=== PATIENT | male | born 1940 | race Caucasian/White ===

== ENCOUNTER → 2017-08-12 | Outpatient (REF) | payer MEDICARE ==
[2017-08-12 18:50] LABS: FOLATE 11.2 NG/ML
[2017-08-12 19:09] LABS: PERCENT SATURATION 27.3 % (19.7-50.0)
== END ==
LOC: M LAB REF 17:22
PROVIDERS: ATTEND Internal Medicine Nephrology
DX: D64.9 Anemia, unspecified (principal)

== ENCOUNTER → 2018-02-04 | Outpatient (REF) | payer MEDICARE ==
[2018-02-04 16:16] LABS: THYROID STIMULATING HORMONE 0.776 uIU/ML (0.358-3.740)
[2018-02-06 15:10] LABS: PSA TOTAL 0.4 ng/mL (0.0-4.0)
== END ==
LOC: M LAB REF 15:36
DX: E78.5 Hyperlipidemia, unspecified (principal); Z12.5 Encounter for screening for malignant neoplasm of prostate
CPT/HCPCS: 84443

== ENCOUNTER → 2018-04-09 | Outpatient (REF) | payer MEDICARE ==
[2018-04-09 16:43] LABS: BASO % 0.7 % (0.0-1.0); EOS # 0.1 10^3/uL (0.0-0.50); HEMATOCRIT 41.9 % (42.0-52.0); HEMOGLOBIN 13.9 g/dl (13.5-17.5); LYMPH # 0.8 10^3/uL (1.5-4.5); LYMPH % 26.1 % (24.0-44.0); MEAN CORPUSCULAR HEMOGLOBIN 32.3 pg (27.0-33.0); MEAN CORPUSCULAR HGB CONC 33.2 g/dl (32.0-36.5); MEAN CORPUSCULAR VOLUME 97.4 fl (80.0-96.0); MONO # 0.2 10^3/uL (0.0-0.8); MONO % 7.2 % (0.0-5.0); NEUTROPHILS # 1.9 10^3/uL (1.8-7.7); PLATELET COUNT, AUTOMATED 361 10^3/uL (150-450); RED CELL DISTRIBUTION WIDTH 12.8 % (11.5-14.5); WHITE BLOOD COUNT 3.1 10^3/uL (4.0-10.0)
[2018-04-09 16:50] LABS: ESTIMATED AVERAGE GLUCOSE 117 MG/DL (60-110); HEMOGLOBIN A1c 5.7 %
[2018-04-09 16:52] LABS: ALBUMIN 3.9 GM/DL (3.2-5.2); ALBUMIN/GLOBULIN RATIO 1.26 (1.00-1.93); ALKALINE PHOSPHATASE 37 U/L (45-117); ALT/SGPT 21 U/L (12-78); ANION GAP 8 MEQ/L (8-16); AST/SGOT 11 U/L (7-37); BILIRUBIN,TOTAL 0.3 MG/DL (0.2-1.0); BLOOD UREA NITROGEN 21 MG/DL (7-18); CALCIUM LEVEL 8.9 MG/DL (8.8-10.2); CARBON DIOXIDE LEVEL 27 MEQ/L (21-32); CHLORIDE LEVEL 107 MEQ/L (98-107); CHOLESTEROL LEVEL 132 MG/DL (<200); CREATININE FOR GFR 1.49 MG/DL (0.70-1.30); GLOMERULAR FILTRATION RATE 48.4 (>42); GLUCOSE, FASTING 111 MG/DL (70-100); HDL CHOLESTEROL 53 MG/DL (>40); LDL CHOLESTEROL 62.6 MG/DL (<100); NON-HDL-C 79 MG/DL; POTASSIUM SERUM 4.8 MEQ/L (3.5-5.1); SODIUM LEVEL 142 MEQ/L (136-145); THYROID STIMULATING HORMONE 0.796 uIU/ML (0.358-3.740); TRIGLYCERIDES LEVEL 82 MG/DL (<150)
[2018-04-09 17:06] LABS: MALB URINE SIEMENS 5.2 MG/L; MAU/CREAT RATIO 3.9 MCG/MG (0.0-30.0)
== END ==
LOC: M LABDRAW1 15:44
DX: E78.5 Hyperlipidemia, unspecified (principal); E11.22 Type 2 diabetes mellitus with diabetic chronic kidney disease; K21.9 Gastro-esophageal reflux disease without esophagitis
CPT/HCPCS: 84443

== ENCOUNTER 2019-02-19 12:41 | Emergency (ER) | payer MEDICARE ==
[~2019-02-19] VITALS: Ht 172.7 cm; Wt 82.7 kg
[2019-02-19] MEDS ORDERED: FENO145T13 PO (12:58)
[2019-02-19] MEDS ORDERED: AMLO5TAB6 PO (12:58)
[2019-02-19] MEDS ORDERED: OMEP40CA2 PO (12:58)
[2019-02-19] MEDS ORDERED: TRAZ10TA PO (12:58)
[2019-02-19] MEDS ORDERED: MONT10TA2 PO (12:58)
[2019-02-19] MEDS ORDERED: ASPI81TA85 PO (12:58)
[2019-02-19] MEDS ORDERED: CITA20TA6 PO (12:58)
[2019-02-19] MEDS ORDERED: VITAD1000T PO (12:58)
[2019-02-19] MEDS ORDERED: ATOR1TAB19 PO (12:58)
[2019-02-19] MEDS ORDERED: NS 500 ML IV ONE (13:30)
--- NOTE | 2019-02-19 13:44 | REP ---
Clinical: Altered mental status. Findings: Age-related atrophy and microvascular ischemic changes are appreciated. The ventricles and sulci are symmetric. Benitez-white differentiation is maintained. There is no evidence for acute intracranial hemorrhage, mass/mass effect, pathology or infarction. No extra-axial fluid collection. Calvarium is intact. Paranasal sinuses and mastoid air cells are clear. Impression: Age related atrophy and microvascular ischemic changes. No acute intracranial hemorrhage, infarction, or mass/mass effect. Electronically Signed by Alonzo Flores MD 02/19/2019 01:36 P
--- NOTE | 2019-02-19 13:50 | REP ---
Clinical: Flank pain. Technique: Axial noncontrast images from the lung bases to the pubic symphysis with coronal and sagittal re-formations. Findings: Liver, spleen, pancreas, bilateral adrenal glands and kidneys are normal for noncontrast evaluation. Mild bilateral perinephric stranding is nonspecific and likely chronic. Cholelithiasis noted without evidence for acute cholecystitis. The enteric system is without obstruction or acute inflammatory process. Pelvis demonstrates normal bladder and age appropriate prostate/seminal vesicles. Fat containing left inguinal hernia is noted. No ascites. No free air. No adenopathy. Abdominal aorta demonstrates atherosclerotic changes without aneurysm. Musculoskeletal structures without focal osseous abnormality. Lung bases are clear. Impression: 1. Mild symmetric perinephric stranding likely chronic and without hydroureteronephrosis or nephroureterolithiasis. 2. Cholelithiasis without evidence for acute cholecystitis. 3. Fat containing left inguinal hernia. 4. No acute abdominopelvic pathology appreciated. Electronically Signed by Alonzo Flores MD 02/19/2019 01:42 P
[2019-02-19 14:15] LABS: BASO % 0.2 % (0.0-1.0); EOS % 0.3 % (0.0-3.0); HEMATOCRIT 40.8 % (42.0-52.0); HEMOGLOBIN 13.4 g/dl (13.5-17.5); LYMPH # 0.6 10^3/uL (1.5-4.5); LYMPH % 7.1 % (24.0-44.0); MEAN CORPUSCULAR HEMOGLOBIN 31.2 pg (27.0-33.0); MEAN CORPUSCULAR HGB CONC 32.8 g/dl (32.0-36.5); MEAN CORPUSCULAR VOLUME 94.9 fl (80.0-96.0); MONO # 0.3 10^3/uL (0.0-0.8); MONO % 3.8 % (0.0-5.0); NEUTROPHILS # 7.8 10^3/uL (1.8-7.7); NEUTROPHILS % 87.7 % (36.0-66.0); PLATELET COUNT, AUTOMATED 379 10^3/uL (150-450); WHITE BLOOD COUNT 8.9 10^3/uL (4.0-10.0)
[2019-02-19 14:43] VITALS: BP 177/82
[2019-02-19 14:44] LABS: ALBUMIN 3.4 GM/DL (3.2-5.2); BILIRUBIN,DIRECT 0.2 MG/DL (0.0-0.2); BILIRUBIN,TOTAL 0.5 MG/DL (0.2-1.0); CALCIUM LEVEL 8.6 MG/DL (8.8-10.2); CREATININE FOR GFR 1.25 MG/DL (0.70-1.30); GLOMERULAR FILTRATION RATE 59.2 (>35); MB/CK RELATIVE INDEX 1.49 (< OR =4); POTASSIUM SERUM 4.7 MEQ/L (3.5-5.1); TOTAL PROTEIN 7.2 GM/DL (6.4-8.2); TROPONIN I 0.02 NG/ML (< 0.10)
[2019-02-19] MEDS ORDERED: ISOVUE-370 76% 100ML VIAL (Q9967) As Ordered ONE (14:50)
--- NOTE | 2019-02-19 15:23 | REP ---
Clinical: Abdominal pain. Technique: Axial contrast enhanced images from the lung bases to the pubic symphysis using 100 ml Isovue 370 intravenous contrast material with coronal and sagittal re-formations. Findings: Liver, spleen, pancreas, bilateral adrenal glands and kidneys are normal. Cholelithiasis is appreciated and very subtle gallbladder wall thickening cannot be excluded along with suspected small stones in the common bile duct raising the possibility of early acute cholecystitis. The enteric system is without obstruction or acute inflammatory process. Pelvis demonstrates normal bladder and age appropriate prostate/seminal vesicles. Fat containing inguinal hernia noted. No ascites. No free air. No adenopathy. Atherosclerotic changes to the aorta and vasculature noted without aneurysm or dissection. Musculoskeletal structures demonstrate degenerative changes. Lung bases are clear. Impression: Cholelithiasis with mild gallbladder wall thickening and suspected stones in the common bile duct raise the possibility of early acute cholecystitis. Electronically Signed by Alonzo Flores MD 02/19/2019 03:15 P
--- NOTE | 2019-02-19 15:27 | REP ---
Clinical: Chest pain and weakness . Comparison: 09/02/2013 . Findings: The mediastinum and cardiac silhouette are stable and within normal limits for portable technique. The lung malone are clear without acute consolidation, effusion, or pneumothorax. Skeletal structures are intact. Impression: No acute cardiopulmonary process appreciated. Electronically Signed by Alonzo Flores MD 02/19/2019 03:18 P
--- NOTE | 2019-02-19 17:09 | REP ---
Clinical: Abdominal pain and abnormal CT findings. Technique: Real time mosher scale ultrasound examination using curved array transducer. Findings: Liver and visualized pancreas are normal in contour, size, echogenicity without focal hepatic or pancreatic lesion identified. Gallbladder demonstrates layering sludge and gravel/stones with mild wall thickening to 3 mm. No pericholecystic fluid or sonographic Tam's sign was elicited. The common bile duct measures 4.1 mm diameter. Right kidney measures 12.9 x 4.9 x 5.1 cm and includes subcentimeter lower pole simple cyst without evidence for hydronephrosis. No ascites. Impression: 1. Cholelithiasis. Suspected choledocholithiasis on CT cannot be confirmed on ultrasound. No sonographic Tam's sign was elicited to suggest acute cholecystitis. Clinical correlation is recommended. Electronically Signed by Alonzo Flores MD 02/19/2019 05:01 P
--- NOTE | 2019-02-19 19:24 | ECGEPIP ---
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
[2019-02-19] MEDS ORDERED: PERC5TAB12 PO (23:52)
--- NOTE | 2019-02-20 09:28 | ED PDOC ---
Post-Departure Follow-Up dr albert ramon and dr post faxed formal report of ct abd/p with and witho ut conttrast, gb us for fu Riya Calderón MD Feb 20, 2019 09:28
== END 2019-02-19 18:04 | disposition home or self-care (01) ==
LOC: M ED 12:41
DX: K80.20 Calculus of gallbladder without cholecystitis without obstruction (principal); M54.9 Dorsalgia, unspecified; R10.9 Unspecified abdominal pain; R53.1 Weakness; R20.2 Paresthesia of skin; E11.22 Type 2 diabetes mellitus with diabetic chronic kidney disease; I12.9 Hypertensive chronic kidney disease with stage 1 through stage 4 chronic kidney disease, or unspecified chronic kidney disease; K27.9 Peptic ulcer, site unspecified, unspecified as acute or chronic, without hemorrhage or perforation; N18.9 Chronic kidney disease, unspecified; Z79.899 Other long term (current) drug therapy; Z79.82 Long term (current) use of aspirin
CPT/HCPCS: 70450; 71045; 74176; 74177; 76705; 80048; 80076; 81001; 82150; 82550; 82553; 83605; 83690; 84484; 85025; 87040; 93005; 93041; 96360; 96361; 99284; Q9967

== ENCOUNTER 2019-02-19 20:43 | Emergency (ER) | payer MEDICARE ==
[~2019-02-19] VITALS: Ht 172.7 cm; Wt 81.8 kg
[~2019-02-19 20:43] MED LIST: AMLO5TAB6 PO; ASPI81TA85 PO; ATOR1TAB19 PO; CITA20TA6 PO; FENO145T13 PO; MONT10TA2 PO; OMEP40CA2 PO; TRAZ10TA PO; VITAD1000T PO
[2019-02-19] MEDS ORDERED: ONDANSETRON 4MG/2ML VIAL (J2405) IV ONE (21:15)
[2019-02-19] MEDS: MORPHINE 4 MG/ML 1ML VIAL/SYRINGE (J2270) IV PRN ×2 (21:17→21:41)
[2019-02-19 21:21] LABS: BASO % 0.4 % (0.0-1.0); EOS # 0.1 10^3/uL (0.0-0.50); EOS % 1.1 % (0.0-3.0); HEMATOCRIT 40.6 % (42.0-52.0); HEMOGLOBIN 13.4 g/dl (13.5-17.5); LYMPH # 1.2 10^3/uL (1.5-4.5); LYMPH % 16.4 % (24.0-44.0); MEAN CORPUSCULAR HEMOGLOBIN 31.2 pg (27.0-33.0); MEAN CORPUSCULAR VOLUME 94.4 fl (80.0-96.0); MONO # 0.4 10^3/uL (0.0-0.8); MONO % 5.3 % (0.0-5.0); NEUTROPHILS # 5.5 10^3/uL (1.8-7.7); NEUTROPHILS % 76.2 % (36.0-66.0); PLATELET COUNT, AUTOMATED 387 10^3/uL (150-450); WHITE BLOOD COUNT 7.2 10^3/uL (4.0-10.0)
[2019-02-19 21:40] LABS: ALBUMIN 3.5 GM/DL (3.2-5.2); BILIRUBIN,DIRECT 0.3 MG/DL (0.0-0.2); BILIRUBIN,TOTAL 0.5 MG/DL (0.2-1.0); CALCIUM LEVEL 8.7 MG/DL (8.8-10.2); CREATININE FOR GFR 1.37 MG/DL (0.70-1.30); GLOMERULAR FILTRATION RATE 53.2 (>35); POTASSIUM SERUM 4.6 MEQ/L (3.5-5.1); TOTAL PROTEIN 7.4 GM/DL (6.4-8.2)
--- NOTE | 2019-02-19 23:37 | REPVR ---
EXAM: US Abdomen Limited, Right Upper Quadrant EXAM DATE/TIME: 02/19/2019 10:02 PM CLINICAL HISTORY: 78 years old, male; Abdominal pain; Epigastric; Additional info: Ruq abd pain, worsening, US earlier today TECHNIQUE: Imaging protocol: Real-time ultrasound of the abdomen with image documentation. Examination was focused on the right upper quadrant. COMPARISON: GALLBLADDER US 02/19/2019 4:37 PM FINDINGS: Liver: Unremarkable. Gallbladder: Cholelithiasis and mild gallbladder distention without gallbladder wall thickening or pericholecystic fluid. Negative sonographic Tam's sign, as per the acct exec. Common bile duct: No stones. No ductal dilatation. Pancreas: Suboptimally visualized. Right kidney: No mass. No definite stones. No hydronephrosis. IMPRESSION: Cholelithiasis without sonographic evidence of acute cholecystitis. Electronically signed by: Alfonso Pineda On 02/19/2019 23:37:07 PM
[2019-02-19] MEDS ORDERED: PERC5TAB12 PO (23:52)
[2019-02-20] VITALS: BP 138/67
[2019-02-20] MEDS ORDERED: OXYCODONE/APAP 5MG/325MG(BULK FOR ED) 1 TABLET PO ONE
--- NOTE | 2019-02-20 06:38 | ECGEPIP ---
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
== END 2019-02-20 00:14 | disposition home or self-care (01) ==
LOC: M ED 20:43
DX: K80.70 Calculus of gallbladder and bile duct without cholecystitis without obstruction (principal); R11.0 Nausea; Z87.442 Personal history of urinary calculi; Z79.899 Other long term (current) drug therapy; Z79.82 Long term (current) use of aspirin
CPT/HCPCS: 76705; 80048; 80076; 83605; 83690; 85025; 93005; 93041; 96374; 96375; 99284; J2270; J2405

== ENCOUNTER → 2021-10-02 | Outpatient (REF) | payer MEDICARE ==
[~2021-10-02] MED LIST changes: +AMLO1TAB24 PO; -AMLO5TAB6 PO; -ASPI81TA85 PO; +ASPI81TA86 PO; +CHOL100029 PO; -FENO145T13 PO; +FENO145T7 PO; -MONT10TA2 PO; +MONT10TA97 PO; -OMEP40CA2 PO; +OMEP40CA4 PO; +PERC5TAB12 PO; -TRAZ10TA PO; +TRAZ1TAB12 PO; -VITAD1000T PO
== END ==
LOC: M WUC 20:45
PROVIDERS: ATTEND Nurse Practitioner Family
DX: R42 Dizziness and giddiness (principal)

== ENCOUNTER 2023-09-27 13:09 | Inpatient (IN) | payer BC, MEDICARE ==
[~2023-09-27] VITALS: Ht 167.6 cm; Wt 79.8 kg
[2023-09-27] MEDS ORDERED: BUSP10TA PO (13:29)
[2023-09-27] MEDS ORDERED: CITA20TA7 PO (13:29)
[2023-09-27] MEDS ORDERED: ROPI0.5T33 PO (13:29)
[2023-09-27] MEDS ORDERED: VITA100093 PO (13:29)
[2023-09-27] MEDS ORDERED: GABA-1171 PO (13:29)
[2023-09-27] MEDS ORDERED: ADVA230A INH (13:29)
[2023-09-27] MEDS ORDERED: MORPHINE 4 MG/ML 1ML VIAL IV ONE ×2 (13:40→14:50)
[2023-09-27 13:54] LABS: BASO % 0.1 % (0.0-1.0); HEMATOCRIT 36.9 % (42.0-52.0); HEMOGLOBIN 12.2 g/dl (13.5-17.5); LYMPH # 0.4 10^3/uL (1.5-5.0); LYMPH % 5.3 % (24.0-44.0); MEAN CORPUSCULAR HEMOGLOBIN 32.4 pg (27.0-33.0); MEAN CORPUSCULAR HGB CONC 33.1 g/dl (32.0-36.5); MEAN CORPUSCULAR VOLUME 97.9 fl (80.0-96.0); MONO # 0.2 10^3/uL (0.0-0.8); MONO % 2.1 % (2.0-8.0); NEUTROPHILS # 7.5 10^3/uL (1.5-8.5); PLATELET COUNT, AUTOMATED 199 10^3/uL (150-450); RED BLOOD COUNT 3.77 10^6/uL (4.30-6.10); WHITE BLOOD COUNT 8.1 10^3/uL (4.0-10.0)
[2023-09-27 14:08] LABS: INR 1.33
[2023-09-27 14:09] LABS: PARTIAL THROMBOPLASTIN TIME 26.2 SECONDS (24.8-34.2)
[2023-09-27 14:34] LABS: CALCIUM LEVEL 8.7 MG/DL (8.3-10.6); CREATININE FOR GFR 1.31 MG/DL (0.70-1.30); GLOMERULAR FILTRATION RATE 55.4 (>35); POTASSIUM SERUM 4.9 MMOL/L (3.5-5.1)
[2023-09-27 14:52] LABS: RSV AMPLIFICATION NEGATIVE (NEGATIVE)
[2023-09-27] MEDS ORDERED: NS 1,000 ML IV SCH (16:00)
[2023-09-27] MEDS ORDERED: DEXTROSE 50% 50ML SYRINGE IV PRN (16:05)
[2023-09-27] MEDS ORDERED: GLUCAGON INJ 1MG VIAL SC PRN (16:05)
[2023-09-27] MEDS ORDERED: NS 1,000 ML IV ONE (16:05)
[2023-09-27] MEDS ORDERED: GLUCOSE 4GM CHEW TABLET PO PRN (16:05)
[2023-09-27] MEDS ORDERED: PERCOCET 5MG/325MG TAB PO PRN (16:10)
[2023-09-27] MEDS ORDERED: ALBUTEROL 90 MCG/ACT 8GM HFA INHALER INH PRN (16:15)
[2023-09-27] MEDS ORDERED: busPIRone 10 MG TAB PO PRN (16:15)
[2023-09-27] MEDS ORDERED: ALBU8.5H INH (16:22)
[2023-09-27] MEDS ORDERED: SERT150C PO (16:22)
[2023-09-27] MEDS ORDERED: HOME MED LIST COMPLETE! XX SCH (16:25)
[2023-09-27 17:19] LABS: HEMATOCRIT 35.5 % (42.0-52.0); HEMOGLOBIN 11.6 g/dl (13.5-17.5)
[2023-09-27] MEDS ORDERED: MORPHINE 2 MG/ML 1ML VIAL IV PRN (18:00)
[2023-09-27] MEDS ORDERED: MORPHINE 4 MG/ML 1ML VIAL IV PRN (18:00)
[2023-09-27] MEDS ORDERED: NS 500 ML IV ONE (18:00)
[2023-09-27] MEDS ORDERED: KETAMINE HCL 200MG/20ML VIAL As Ordered ONE (18:05)
[2023-09-27] MEDS ORDERED: propofoL 200 MG/20 ML VIAL As Ordered ONE ×2 (18:06→19:39)
[2023-09-27] MEDS ORDERED: ceFAZolin 1GM VIAL As Ordered ONE (18:07)
[2023-09-27] MEDS ORDERED: TRANEXAMIC ACID 100 MG/ML 10ML VIAL As Ordered ONE (18:31)
[2023-09-27] MEDS ORDERED: VASOPRESSIN INJ 20UNITS/ML 1ML VIAL As Ordered ONE (18:34)
[2023-09-27] MEDS ORDERED: PHENYLephrine 500MCG 5ML (100MCG/ML) SYRINGE As Ordered ONE (19:39)
[2023-09-27 21:40] VITALS: BP 110/58; TEMP 99.3; O2SAT 99
[2023-09-27] MEDS: traZODone 100 MG TAB PO SCH (22:00)
[2023-09-27] MEDS: INSULIN LISPRO (NovoLOG) PER UNIT SC SCH (22:00)
[2023-09-27 23:00] VITALS: BP 122/61; TEMP 98.9; O2SAT 99
[2023-09-27 23:26] VITALS: BP 122/61; TEMP 98.9; O2SAT 99
[2023-09-28] VITALS (8 sets, daily range): BP systolic 119–132; BP diastolic 58–61; TEMP 97.2–98.4; O2SAT 97
[2023-09-28] MEDS: MONTELUKAST 10 MG TAB PO SCH ×2 (00:46→20:29)
[2023-09-28] MEDS: GABAPENTIN 100 MG CAP PO SCH ×3 (00:46→20:29)
[2023-09-28] MEDS: rOPINIRole 0.25 MG TAB(REQUIP) PO SCH ×2 (00:48→20:29)
[2023-09-28] MEDS: NS 1,000 ML IV SCH ×2 (00:49→09:12)
[2023-09-28] MEDS ORDERED: oxyCODONE 5MG TAB PO ONE (03:45)
[2023-09-28 05:04] LABS: ALBUMIN 2.8 G/DL (3.2-5.2); ALKALINE PHOSPHATASE 39 U/L (46-116); ALT/SGPT < 9 U/L (7.0-40); AST/SGOT 9 U/L (<34); BILIRUBIN,DIRECT 0.2 MG/DL (<0.4); BILIRUBIN,TOTAL 0.5 MG/DL (0.3-1.2); BLOOD UREA NITROGEN 22 MG/DL (9-23); CALCIUM LEVEL 7.7 MG/DL (8.3-10.6); CARBON DIOXIDE LEVEL 22 MMOL/L (20-31); CHLORIDE LEVEL 110 MMOL/L (98-107); GLOMERULAR FILTRATION RATE 51.3 (>35); GLUCOSE, FASTING 154 MG/DL (74-106); MAGNESIUM LEVEL 1.8 MG/DL (1.8-2.4); POTASSIUM SERUM 4.8 MMOL/L (3.5-5.1); SODIUM LEVEL 138 MMOL/L (136-145); TOTAL PROTEIN 5.2 G/DL (5.7-8.2)
[2023-09-28] MEDS: INSULIN LISPRO (NovoLOG) PER UNIT SC SCH ×5 (06:00→20:29)
[2023-09-28] MEDS: ADVAIR HFA 230/21MCG INHALER INH SCH ×2 (07:19→20:39)
[2023-09-28] MEDS: OMEPRAZOLE 20MG CAP PO SCH (09:13)
[2023-09-28] MEDS: LIDOCAINE 5% (LIDODERM) PATCH TD SCH (09:13)
[2023-09-28] MEDS: CitaloPRAM (CeleXA) 20 MG TAB PO SCH (09:14)
[2023-09-28] MEDS: PERCOCET 5MG/325MG TAB PO PRN ×2 (09:14→16:24)
[2023-09-28] MEDS: ATORVASTATIN 10 MG TAB PO SCH (09:14)
[2023-09-28] MEDS: ASPIRIN 81MG ENTERIC TABLET PO SCH (14:06)
[2023-09-28] MEDS: ACETAMINOPHEN TAB 650MG DOSE (2X325MG) PO PRN (14:15)
[2023-09-28] MEDS: traZODone 100 MG TAB PO SCH (20:27)
[2023-09-29] VITALS (8 sets, daily range): BP systolic 106–125; BP diastolic 56–75; TEMP 97.7–99.8; O2SAT 89–98
[2023-09-29] MEDS: PERCOCET 5MG/325MG TAB PO PRN ×3 (04:06→15:00)
[2023-09-29 06:06] LABS: BLOOD UREA NITROGEN 19 MG/DL (9-23); CALCIUM LEVEL 7.7 MG/DL (8.3-10.6); CARBON DIOXIDE LEVEL 23 MMOL/L (20-31); CHLORIDE LEVEL 111 MMOL/L (98-107); GLOMERULAR FILTRATION RATE > 60.0 (>35); GLUCOSE, FASTING 136 MG/DL (74-106); MAGNESIUM LEVEL 1.8 MG/DL (1.8-2.4); POTASSIUM SERUM 4.2 MMOL/L (3.5-5.1); SODIUM LEVEL 140 MMOL/L (136-145)
[2023-09-29] MEDS: ADVAIR HFA 230/21MCG INHALER INH SCH ×2 (07:42→19:32)
[2023-09-29] MEDS: INSULIN LISPRO (NovoLOG) PER UNIT SC SCH ×4 (08:36→21:00)
[2023-09-29] MEDS: CitaloPRAM (CeleXA) 20 MG TAB PO SCH (08:38)
[2023-09-29] MEDS: OMEPRAZOLE 20MG CAP PO SCH (08:39)
[2023-09-29] MEDS: ATORVASTATIN 10 MG TAB PO SCH (08:40)
[2023-09-29] MEDS: GABAPENTIN 100 MG CAP PO SCH ×2 (08:40→21:00)
[2023-09-29] MEDS: LIDOCAINE 5% (LIDODERM) PATCH TD SCH (08:40)
[2023-09-29] MEDS: ASPIRIN 81MG ENTERIC TABLET PO SCH ×2 (08:40→21:01)
[2023-09-29] MEDS: ACETAMINOPHEN TAB 650MG DOSE (2X325MG) PO PRN (12:32)
[2023-09-29] MEDS: traZODone 100 MG TAB PO SCH (21:00)
[2023-09-29] MEDS: MONTELUKAST 10 MG TAB PO SCH (21:00)
[2023-09-29] MEDS: rOPINIRole 0.25 MG TAB(REQUIP) PO SCH (21:01)
[2023-09-30] MEDS: PERCOCET 5MG/325MG TAB PO PRN ×4 (00:42→21:34)
[2023-09-30 00:45] VITALS: BP 157/64; TEMP 100.2; O2SAT 95
[2023-09-30 04:55] VITALS: TEMP 98.7
[2023-09-30 05:42] VITALS: BP 136/68; TEMP 98.5; O2SAT 96
[2023-09-30] MEDS: ADVAIR HFA 230/21MCG INHALER INH SCH ×2 (08:00→19:52)
[2023-09-30] MEDS: OMEPRAZOLE 20MG CAP PO SCH (08:44)
[2023-09-30] MEDS: LIDOCAINE 5% (LIDODERM) PATCH TD SCH (08:45)
[2023-09-30] MEDS: ATORVASTATIN 10 MG TAB PO SCH (08:45)
[2023-09-30] MEDS: INSULIN LISPRO (NovoLOG) PER UNIT SC SCH ×4 (08:45→20:19)
[2023-09-30] MEDS: CitaloPRAM (CeleXA) 20 MG TAB PO SCH (08:45)
[2023-09-30] MEDS: ASPIRIN 81MG ENTERIC TABLET PO SCH ×2 (08:45→20:27)
[2023-09-30] MEDS: GABAPENTIN 100 MG CAP PO SCH ×2 (08:45→20:27)
[2023-09-30] MEDS ORDERED: ENOXAPARIN 40MG/0.4ML SYRINGE (J1650 PER 10MG) SC SCH (09:00)
[2023-09-30 14:00] VITALS: BP 129/68; TEMP 98; O2SAT 94
[2023-09-30] MEDS: ACETAMINOPHEN TAB 650MG DOSE (2X325MG) PO PRN (20:25)
[2023-09-30] MEDS: rOPINIRole 0.25 MG TAB(REQUIP) PO SCH (20:27)
[2023-09-30] MEDS: traZODone 100 MG TAB PO SCH (20:27)
[2023-09-30] MEDS: MONTELUKAST 10 MG TAB PO SCH (20:27)
[2023-09-30 20:46] VITALS: BP 136/72; TEMP 99.8; O2SAT 94
[2023-10-01 02:00] VITALS: TEMP 97.7
[2023-10-01] MEDS: PERCOCET 5MG/325MG TAB PO PRN ×3 (04:02→20:11)
[2023-10-01 05:05] VITALS: BP 119/70; TEMP 97.9; O2SAT 95
[2023-10-01] MEDS ORDERED: LIDOCAINE 5% (LIDODERM) PATCH TD PRN (09:00)
[2023-10-01] MEDS: LIDOCAINE 5% (LIDODERM) PATCH TD SCH (09:06)
[2023-10-01] MEDS: GABAPENTIN 100 MG CAP PO SCH ×2 (09:06→20:09)
[2023-10-01] MEDS: INSULIN LISPRO (NovoLOG) PER UNIT SC SCH ×4 (09:06→20:58)
[2023-10-01] MEDS: OMEPRAZOLE 20MG CAP PO SCH (09:06)
[2023-10-01] MEDS: ASPIRIN 81MG ENTERIC TABLET PO SCH ×2 (09:06→20:10)
[2023-10-01] MEDS: ATORVASTATIN 10 MG TAB PO SCH (09:08)
[2023-10-01] MEDS: CitaloPRAM (CeleXA) 20 MG TAB PO SCH (09:09)
[2023-10-01] MEDS: ADVAIR HFA 230/21MCG INHALER INH SCH ×2 (09:29→21:27)
[2023-10-01] MEDS: SENOKOT S TAB PO SCH ×2 (10:08→20:10)
[2023-10-01 11:16] VITALS: BP_SYST 126; BP_SYST 83; BP_DIAS 57; BP_DIAS 62
[2023-10-01 14:00] VITALS: BP 122/63; TEMP 99.2; O2SAT 94
[2023-10-01] MEDS: rOPINIRole 0.25 MG TAB(REQUIP) PO SCH (20:10)
[2023-10-01] MEDS: traZODone 100 MG TAB PO SCH (20:10)
[2023-10-01] MEDS: MONTELUKAST 10 MG TAB PO SCH (20:10)
[2023-10-01 21:13] VITALS: BP 121/63; TEMP 100.4; O2SAT 92
[2023-10-01] MEDS: ACETAMINOPHEN TAB 650MG DOSE (2X325MG) PO PRN (21:44)
[2023-10-01 22:23] LABS: BASO % 0.4 % (0.0-1.0); EOS % 0.9 % (0.0-3.0); HEMATOCRIT 21.3 % (42.0-52.0); LYMPH # 0.7 10^3/uL (1.5-5.0); LYMPH % 30.5 % (24.0-44.0); MEAN CORPUSCULAR HEMOGLOBIN 32.2 pg (27.0-33.0); MEAN CORPUSCULAR HGB CONC 32.4 g/dl (32.0-36.5); MEAN CORPUSCULAR VOLUME 99.5 fl (80.0-96.0); MONO # 0.2 10^3/uL (0.0-0.8); MONO % 7.6 % (2.0-8.0); NEUTROPHILS # 1.3 10^3/uL (1.5-8.5); NEUTROPHILS % 60.2 % (36.0-66.0); PLATELET COUNT, AUTOMATED 202 10^3/uL (150-450); RED BLOOD COUNT 2.14 10^6/uL (4.30-6.10); WHITE BLOOD COUNT 2.2 10^3/uL (4.0-10.0)
[2023-10-01 22:29] LABS: HEMOGLOBIN 6.9 g/dl (13.5-17.5)
[2023-10-01 22:41] VITALS: TEMP 97.4
[2023-10-02] VITALS (11 sets, daily range): BP systolic 112–142; BP diastolic 52–85; TEMP 96.8–99; O2SAT 92–97
[2023-10-02 06:15] LABS: EOS % 0.9 % (0.0-3.0); HEMATOCRIT 26.1 % (42.0-52.0); HEMOGLOBIN 8.3 g/dl (13.5-17.5); LYMPH # 0.4 10^3/uL (1.5-5.0); LYMPH % 20.2 % (24.0-44.0); MEAN CORPUSCULAR HEMOGLOBIN 30.9 pg (27.0-33.0); MEAN CORPUSCULAR HGB CONC 31.8 g/dl (32.0-36.5); MONO # 0.2 10^3/uL (0.0-0.8); MONO % 9.6 % (2.0-8.0); NEUTROPHILS # 1.5 10^3/uL (1.5-8.5); NEUTROPHILS % 68.8 % (36.0-66.0); PLATELET COUNT, AUTOMATED 227 10^3/uL (150-450); RED BLOOD COUNT 2.69 10^6/uL (4.30-6.10); WHITE BLOOD COUNT 2.2 10^3/uL (4.0-10.0)
[2023-10-02] MEDS: ADVAIR HFA 230/21MCG INHALER INH SCH ×2 (08:02→20:05)
[2023-10-02] MEDS: GABAPENTIN 100 MG CAP PO SCH ×2 (08:27→20:13)
[2023-10-02] MEDS: SENOKOT S TAB PO SCH ×2 (08:27→20:13)
[2023-10-02] MEDS: ATORVASTATIN 10 MG TAB PO SCH (08:27)
[2023-10-02] MEDS: OMEPRAZOLE 20MG CAP PO SCH (08:27)
[2023-10-02] MEDS: LIDOCAINE 5% (LIDODERM) PATCH TD SCH (08:27)
[2023-10-02] MEDS: CitaloPRAM (CeleXA) 20 MG TAB PO SCH (08:27)
[2023-10-02] MEDS: INSULIN LISPRO (NovoLOG) PER UNIT SC SCH ×4 (08:28→20:40)
[2023-10-02] MEDS: ASPIRIN 81MG ENTERIC TABLET PO SCH ×2 (08:28→20:12)
[2023-10-02] MEDS: PERCOCET 5MG/325MG TAB PO PRN ×3 (08:33→22:35)
[2023-10-02] MEDS: ACETAMINOPHEN TAB 650MG DOSE (2X325MG) PO PRN ×2 (11:36→20:13)
[2023-10-02] MEDS: traZODone 100 MG TAB PO SCH (20:12)
[2023-10-02] MEDS: rOPINIRole 0.25 MG TAB(REQUIP) PO SCH (20:12)
[2023-10-02] MEDS: MONTELUKAST 10 MG TAB PO SCH (20:13)
[2023-10-03 05:20] VITALS: BP 142/91; TEMP 98.8; O2SAT 93
[2023-10-03 06:27] LABS: HEMATOCRIT 29.3 % (42.0-52.0); HEMOGLOBIN 9.9 g/dl (13.5-17.5)
[2023-10-03] MEDS: ADVAIR HFA 230/21MCG INHALER INH SCH ×2 (08:04→20:41)
[2023-10-03] MEDS: INSULIN LISPRO (NovoLOG) PER UNIT SC SCH ×4 (08:35→19:31)
[2023-10-03] MEDS: OMEPRAZOLE 20MG CAP PO SCH (08:36)
[2023-10-03] MEDS: GABAPENTIN 100 MG CAP PO SCH ×2 (08:36→19:37)
[2023-10-03] MEDS: SENOKOT S TAB PO SCH ×2 (08:36→19:36)
[2023-10-03] MEDS: PERCOCET 5MG/325MG TAB PO PRN ×3 (08:37→19:38)
[2023-10-03] MEDS: ATORVASTATIN 10 MG TAB PO SCH (08:37)
[2023-10-03] MEDS: LIDOCAINE 5% (LIDODERM) PATCH TD SCH (08:38)
[2023-10-03] MEDS: CitaloPRAM (CeleXA) 20 MG TAB PO SCH (08:38)
[2023-10-03] MEDS: ASPIRIN 81MG ENTERIC TABLET PO SCH ×2 (08:38→19:37)
[2023-10-03] MEDS: SODIUM CHLORIDE NASAL 0.65% SPRAY BTL (OCEAN) PRN ×2 (08:39→19:35)
[2023-10-03] MEDS: ACETAMINOPHEN TAB 650MG DOSE (2X325MG) PO PRN ×2 (11:56→13:25)
[2023-10-03] MEDS: traZODone 100 MG TAB PO SCH (19:36)
[2023-10-03] MEDS: rOPINIRole 0.25 MG TAB(REQUIP) PO SCH (19:36)
[2023-10-03] MEDS: MONTELUKAST 10 MG TAB PO SCH (19:38)
[2023-10-04 05:00] VITALS: BP 135/78; TEMP 99.4; O2SAT 91
[2023-10-04] MEDS: ADVAIR HFA 230/21MCG INHALER INH SCH ×2 (07:39→20:04)
[2023-10-04] MEDS: SENOKOT S TAB PO SCH ×2 (08:46→19:24)
[2023-10-04] MEDS: OMEPRAZOLE 20MG CAP PO SCH (08:47)
[2023-10-04] MEDS: GABAPENTIN 100 MG CAP PO SCH ×2 (08:47→19:25)
[2023-10-04] MEDS: CitaloPRAM (CeleXA) 20 MG TAB PO SCH (08:47)
[2023-10-04] MEDS: ASPIRIN 81MG ENTERIC TABLET PO SCH ×2 (08:47→19:25)
[2023-10-04] MEDS: INSULIN LISPRO (NovoLOG) PER UNIT SC SCH ×4 (08:48→19:25)
[2023-10-04] MEDS: PERCOCET 5MG/325MG TAB PO PRN ×2 (08:48→16:03)
[2023-10-04] MEDS: ATORVASTATIN 10 MG TAB PO SCH (08:48)
[2023-10-04] MEDS: LIDOCAINE 5% (LIDODERM) PATCH TD SCH (08:51)
[2023-10-04] MEDS ORDERED: ASPI81TAEC PO (09:57)
[2023-10-04] MEDS: ACETAMINOPHEN TAB 650MG DOSE (2X325MG) PO PRN (12:45)
[2023-10-04] MEDS: rOPINIRole 0.25 MG TAB(REQUIP) PO SCH (19:23)
[2023-10-04] MEDS: traZODone 100 MG TAB PO SCH (19:25)
[2023-10-04] MEDS: MONTELUKAST 10 MG TAB PO SCH (19:25)
== END 2023-10-04 20:45 | DRG 481 ==
LOC: EDBD 13:09 → M ED 13:09 → M ED INP 16:01 → M PCU 21:36 → M MSPAV 09-30 05:35
PROVIDERS: ADMIT Student in an Organized Health Care Education/Training Program; ATTEND Family Medicine
PROC: 0QS706Z Reposition Left Upper Femur with Intramedullary Internal Fixation Device, Open Approach (ICD-10-PCS; principal; 2023-09-27 16:46)
PROC: 30233N1 Transfusion of Nonautologous Red Blood Cells into Peripheral Vein, Percutaneous Approach (ICD-10-PCS; 2023-10-02)
DX: S72.142A Displaced intertrochanteric fracture of left femur, initial encounter for closed fracture (principal); D62 Acute posthemorrhagic anemia; E11.22 Type 2 diabetes mellitus with diabetic chronic kidney disease; N18.30 Chronic kidney disease, stage 3 unspecified; E78.5 Hyperlipidemia, unspecified; K21.9 Gastro-esophageal reflux disease without esophagitis; J45.909 Unspecified asthma, uncomplicated; M54.50 Low back pain, unspecified; G89.29 Other chronic pain; W18.09XA Striking against other object with subsequent fall, initial encounter; Y92.014 Private driveway to single-family (private) house as the place of occurrence of the external cause; R01.1 Cardiac murmur, unspecified; Y93.H1 Activity, digging, shoveling and raking; Y99.8 Other external cause status; H54.8 Legal blindness, as defined in USA; H35.30 Unspecified macular degeneration; Z87.891 Personal history of nicotine dependence; Z79.84 Long term (current) use of oral hypoglycemic drugs; Z88.8 Allergy status to other drugs, medicaments and biological substances; Z88.2 Allergy status to sulfonamides

== ENCOUNTER 2023-10-04 11:32 | Inpatient (IN) | payer BC, MEDICARE ==
[~2023-10-04] VITALS: Ht 167.6 cm; Wt 79.8 kg
[~2023-10-04 11:32] MED LIST changes: +ADVA230A INH; +ALBU8.5H INH; +ASPI81TAEC PO; +BUSP10TA PO; +CITA20TA7 PO; +GABA-1171 PO; +ROPI0.5T33 PO; +SERT150C PO; +VITA100093 PO
[2023-10-04] MEDS ORDERED: MOM 30ML SUSPENSION UDC PO PRN (17:15)
[2023-10-04] MEDS ORDERED: ONDANSETRON 4MG TAB PO PRN (17:15)
[2023-10-04] MEDS ORDERED: ALBUTEROL 90 MCG/ACT 8GM HFA INHALER INH PRN (17:20)
[2023-10-04] MEDS ORDERED: oxyCODONE 5MG TAB PO PRN (17:25)
[2023-10-04] MEDS ORDERED: SODIUM CHLORIDE NASAL 0.65% SPRAY BTL (OCEAN) PRN (17:25)
[2023-10-04] MEDS ORDERED: DEXTROSE 50% 50ML SYRINGE IV PRN (17:30)
[2023-10-04] MEDS ORDERED: GLUCAGON INJ 1MG VIAL SC PRN (17:30)
[2023-10-04] MEDS: INSULIN LISPRO (NovoLOG) PER UNIT SC SCH ×2 (17:30→21:00)
[2023-10-04] MEDS ORDERED: GLUCOSE 4GM CHEW TABLET PO PRN (17:30)
[2023-10-04 20:42] VITALS: BP 140/65; TEMP 97.5; O2SAT 94
[2023-10-04] MEDS: SENNA 8.6 MG TAB (SENOKOT) PO SCH (21:00)
[2023-10-04] MEDS: oxyCODONE 5MG TAB PO PRN (22:22)
[2023-10-04] MEDS: ACETAMINOPHEN 500 MG TAB PO SCH (22:27)
[2023-10-05 06:00] VITALS: BP 154/78; TEMP 98.2; O2SAT 97
[2023-10-05 07:07] LABS: HEMATOCRIT 29.1 % (42.0-52.0); HEMOGLOBIN 9.5 g/dl (13.5-17.5); MEAN CORPUSCULAR HEMOGLOBIN 31.9 pg (27.0-33.0); MEAN CORPUSCULAR HGB CONC 32.6 g/dl (32.0-36.5); MEAN CORPUSCULAR VOLUME 97.7 fl (80.0-96.0); PLATELET COUNT, AUTOMATED 300 10^3/uL (150-450); RED BLOOD COUNT 2.98 10^6/uL (4.30-6.10); WHITE BLOOD COUNT 2.5 10^3/uL (4.0-10.0)
[2023-10-05] MEDS: ADVAIR HFA 230/21MCG INHALER INH SCH ×2 (07:24→21:35)
[2023-10-05 07:34] LABS: BLOOD UREA NITROGEN 18 MG/DL (9-23); CALCIUM LEVEL 8.4 MG/DL (8.3-10.6); CARBON DIOXIDE LEVEL 28 MMOL/L (20-31); CHLORIDE LEVEL 108 MMOL/L (98-107); CREATININE FOR GFR 1.07 MG/DL (0.70-1.30); GLOMERULAR FILTRATION RATE > 60.0 (>35); GLUCOSE, FASTING 123 MG/DL (74-106); SODIUM LEVEL 139 MMOL/L (136-145)
[2023-10-05] MEDS: GABAPENTIN 100 MG CAP PO SCH ×2 (07:57→21:18)
[2023-10-05] MEDS: INSULIN LISPRO (NovoLOG) PER UNIT SC SCH ×4 (07:57→20:49)
[2023-10-05] MEDS: CitaloPRAM (CeleXA) 20 MG TAB PO SCH (07:57)
[2023-10-05] MEDS: VITAMIN D 1,000 INTERNATIONAL UNITS TABLET PO SCH (07:57)
[2023-10-05] MEDS: ATORVASTATIN 10 MG TAB PO SCH (07:57)
[2023-10-05] MEDS: OMEPRAZOLE 20MG CAP PO SCH (07:57)
[2023-10-05] MEDS: ACETAMINOPHEN 500 MG TAB PO SCH ×3 (07:58→21:18)
[2023-10-05] MEDS: ASPIRIN 81MG ENTERIC TABLET PO SCH ×2 (07:58→21:18)
[2023-10-05] MEDS: SENNA 8.6 MG TAB (SENOKOT) PO SCH ×2 (07:58→21:18)
[2023-10-05] MEDS: LIDOCAINE 5% (LIDODERM) PATCH TD SCH (07:58)
[2023-10-05] MEDS: oxyCODONE 5MG TAB PO PRN ×2 (08:00→14:36)
[2023-10-05 14:00] VITALS: BP 133/63; TEMP 97.7
[2023-10-05] MEDS ORDERED: oxyCODONE 5MG TAB PO PRN (15:30)
[2023-10-05] MEDS ORDERED: BISACODYL 10MG SUPP PR PRN (15:35)
[2023-10-05] MEDS ORDERED: oxyCODONE 5MG TAB PO ONE (15:45)
[2023-10-05 20:28] VITALS: BP 133/60; TEMP 97.2; O2SAT 96
[2023-10-05] MEDS: traZODone 100 MG TAB PO SCH (21:17)
[2023-10-05] MEDS: rOPINIRole 0.25 MG TAB(REQUIP) PO SCH (21:17)
[2023-10-05] MEDS: MONTELUKAST 10 MG TAB PO SCH (21:18)
[2023-10-05 22:00] VITALS: BP 133/60; TEMP 97.2; O2SAT 96
[2023-10-06 06:00] VITALS: BP 133/65; TEMP 97.4; O2SAT 96
[2023-10-06] MEDS: ADVAIR HFA 230/21MCG INHALER INH SCH ×2 (07:04→18:56)
[2023-10-06] MEDS: SENNA 8.6 MG TAB (SENOKOT) PO SCH ×2 (08:15→20:34)
[2023-10-06] MEDS: GABAPENTIN 100 MG CAP PO SCH ×2 (08:15→20:34)
[2023-10-06] MEDS: OMEPRAZOLE 20MG CAP PO SCH (08:15)
[2023-10-06] MEDS: ASPIRIN 81MG ENTERIC TABLET PO SCH ×2 (08:15→20:33)
[2023-10-06] MEDS: oxyCODONE 5MG TAB PO PRN ×3 (08:16→18:21)
[2023-10-06] MEDS: VITAMIN D 1,000 INTERNATIONAL UNITS TABLET PO SCH (08:16)
[2023-10-06] MEDS: ACETAMINOPHEN 500 MG TAB PO SCH ×3 (08:16→20:34)
[2023-10-06] MEDS: ENOXAPARIN 40MG/0.4ML SYRINGE (J1650 PER 10MG) SC SCH (08:16)
[2023-10-06] MEDS: ATORVASTATIN 10 MG TAB PO SCH (08:16)
[2023-10-06] MEDS: CitaloPRAM (CeleXA) 20 MG TAB PO SCH (08:16)
[2023-10-06] MEDS: LIDOCAINE 5% (LIDODERM) PATCH TD SCH ×2 (08:17→15:52)
[2023-10-06] MEDS: INSULIN LISPRO (NovoLOG) PER UNIT SC SCH ×4 (08:17→20:37)
[2023-10-06] MEDS: busPIRone 10 MG TAB PO PRN (08:22)
[2023-10-06 14:00] VITALS: BP 150/64; TEMP 96.7; O2SAT 99
[2023-10-06] MEDS: MORPHINE SULFATE ORAL SOLN 10 MG/5 ML UD PO PRN ×2 (15:31→20:35)
[2023-10-06] MEDS: metFORMIN (GLUCOPHAGE) 500MG TAB PO SCH (15:52)
[2023-10-06] MEDS ORDERED: LACTULOSE 20GM/30ML SYRUP UDC PO ONE (16:00)
[2023-10-06 20:03] VITALS: BP 133/63; TEMP 98.8; O2SAT 97
[2023-10-06] MEDS: rOPINIRole 0.25 MG TAB(REQUIP) PO SCH (20:33)
[2023-10-06] MEDS: traZODone 100 MG TAB PO SCH (20:34)
[2023-10-06] MEDS: MONTELUKAST 10 MG TAB PO SCH (20:34)
[2023-10-07 05:37] VITALS: BP 139/65; TEMP 97.5; O2SAT 95
[2023-10-07] MEDS: ADVAIR HFA 230/21MCG INHALER INH SCH ×2 (07:39→20:57)
[2023-10-07] MEDS: metFORMIN (GLUCOPHAGE) 500MG TAB PO SCH (08:23)
[2023-10-07] MEDS: OMEPRAZOLE 20MG CAP PO SCH (08:23)
[2023-10-07] MEDS: ACETAMINOPHEN 500 MG TAB PO SCH ×3 (08:23→19:59)
[2023-10-07] MEDS: CitaloPRAM (CeleXA) 20 MG TAB PO SCH (08:23)
[2023-10-07] MEDS: ATORVASTATIN 10 MG TAB PO SCH (08:23)
[2023-10-07] MEDS: GABAPENTIN 100 MG CAP PO SCH ×2 (08:23→20:00)
[2023-10-07] MEDS: ASPIRIN 81MG ENTERIC TABLET PO SCH ×2 (08:23→19:59)
[2023-10-07] MEDS: ENOXAPARIN 40MG/0.4ML SYRINGE (J1650 PER 10MG) SC SCH (08:24)
[2023-10-07] MEDS: SENNA 8.6 MG TAB (SENOKOT) PO SCH ×2 (08:24→19:49)
[2023-10-07] MEDS: VITAMIN D 1,000 INTERNATIONAL UNITS TABLET PO SCH (08:24)
[2023-10-07] MEDS: INSULIN LISPRO (NovoLOG) PER UNIT SC SCH (08:25)
[2023-10-07] MEDS: LIDOCAINE 5% (LIDODERM) PATCH TD SCH ×2 (08:25)
[2023-10-07] MEDS: oxyCODONE 5MG TAB PO PRN ×3 (09:14→20:00)
[2023-10-07] MEDS: CYCLOBENZAPRINE 5MG TABLET PO PRN (09:14)
[2023-10-07 14:00] VITALS: BP 135/62; TEMP 97.5; O2SAT 98
[2023-10-07 19:57] VITALS: BP 149/72; TEMP 98.3; O2SAT 95
[2023-10-07] MEDS: MONTELUKAST 10 MG TAB PO SCH (19:59)
[2023-10-07] MEDS: traZODone 100 MG TAB PO SCH (20:00)
[2023-10-07] MEDS: rOPINIRole 0.25 MG TAB(REQUIP) PO SCH (20:00)
[2023-10-08 05:59] VITALS: BP 144/67; TEMP 97.9; O2SAT 95
[2023-10-08 08:15] LABS: HEMATOCRIT 28.9 % (42.0-52.0); HEMOGLOBIN 9.2 g/dl (13.5-17.5); MEAN CORPUSCULAR HEMOGLOBIN 31.7 pg (27.0-33.0); MEAN CORPUSCULAR HGB CONC 31.8 g/dl (32.0-36.5); MEAN CORPUSCULAR VOLUME 99.7 fl (80.0-96.0); PLATELET COUNT, AUTOMATED 362 10^3/uL (150-450); WHITE BLOOD COUNT 2.1 10^3/uL (4.0-10.0)
[2023-10-08] MEDS: ADVAIR HFA 230/21MCG INHALER INH SCH ×2 (08:50→20:33)
[2023-10-08] MEDS: GABAPENTIN 100 MG CAP PO SCH ×2 (09:00→20:23)
[2023-10-08] MEDS: SENNA 8.6 MG TAB (SENOKOT) PO SCH ×2 (09:00→20:29)
[2023-10-08] MEDS: OMEPRAZOLE 20MG CAP PO SCH (09:00)
[2023-10-08] MEDS: ASPIRIN 81MG ENTERIC TABLET PO SCH ×2 (10:24→20:23)
[2023-10-08] MEDS: LIDOCAINE 5% (LIDODERM) PATCH TD SCH ×2 (10:25→10:32)
[2023-10-08] MEDS: metFORMIN (GLUCOPHAGE) 500MG TAB PO SCH (10:26)
[2023-10-08] MEDS: CitaloPRAM (CeleXA) 20 MG TAB PO SCH (10:26)
[2023-10-08] MEDS: busPIRone 10 MG TAB PO PRN (10:27)
[2023-10-08] MEDS: ATORVASTATIN 10 MG TAB PO SCH (10:27)
[2023-10-08] MEDS: ACETAMINOPHEN 500 MG TAB PO SCH ×3 (10:28→20:23)
[2023-10-08] MEDS: CYCLOBENZAPRINE 5MG TABLET PO PRN (10:28)
[2023-10-08] MEDS: VITAMIN D 1,000 INTERNATIONAL UNITS TABLET PO SCH (10:28)
[2023-10-08] MEDS: oxyCODONE 5MG TAB PO PRN ×3 (10:29→20:25)
[2023-10-08] MEDS: ENOXAPARIN 40MG/0.4ML SYRINGE (J1650 PER 10MG) SC SCH (10:30)
[2023-10-08 14:00] VITALS: BP 147/67; TEMP 97.2; O2SAT 98
[2023-10-08 15:41] VITALS: O2SAT 95
[2023-10-08 20:00] VITALS: BP 124/59; TEMP 97.5; O2SAT 93
[2023-10-08] MEDS: MONTELUKAST 10 MG TAB PO SCH (20:23)
[2023-10-08] MEDS: traZODone 100 MG TAB PO SCH (20:23)
[2023-10-08] MEDS: rOPINIRole 0.25 MG TAB(REQUIP) PO SCH (20:23)
[2023-10-09 06:00] VITALS: BP 133/63; TEMP 97.4; O2SAT 95
[2023-10-09] MEDS: ADVAIR HFA 230/21MCG INHALER INH SCH ×2 (07:41→20:12)
[2023-10-09] MEDS: ENOXAPARIN 40MG/0.4ML SYRINGE (J1650 PER 10MG) SC SCH (08:11)
[2023-10-09] MEDS: GABAPENTIN 100 MG CAP PO SCH ×2 (08:12→20:55)
[2023-10-09] MEDS: SENNA 8.6 MG TAB (SENOKOT) PO SCH ×2 (08:12→20:56)
[2023-10-09] MEDS: CitaloPRAM (CeleXA) 20 MG TAB PO SCH (08:12)
[2023-10-09] MEDS: ATORVASTATIN 10 MG TAB PO SCH (08:12)
[2023-10-09] MEDS: CYCLOBENZAPRINE 5MG TABLET PO PRN (08:12)
[2023-10-09] MEDS: VITAMIN D 1,000 INTERNATIONAL UNITS TABLET PO SCH (08:12)
[2023-10-09] MEDS: OMEPRAZOLE 20MG CAP PO SCH (08:12)
[2023-10-09] MEDS: metFORMIN (GLUCOPHAGE) 500MG TAB PO SCH (08:13)
[2023-10-09] MEDS: ASPIRIN 81MG ENTERIC TABLET PO SCH ×2 (08:13→20:55)
[2023-10-09] MEDS: ACETAMINOPHEN 500 MG TAB PO SCH ×3 (08:13→20:55)
[2023-10-09] MEDS: LIDOCAINE 5% (LIDODERM) PATCH TD SCH ×2 (08:15)
[2023-10-09] MEDS: oxyCODONE 5MG TAB PO PRN (08:19)
[2023-10-09] MEDS: busPIRone 10 MG TAB PO PRN (09:23)
[2023-10-09] MEDS: MORPHINE 30 MG TAB **MSIR PO PRN ×2 (13:41→21:04)
[2023-10-09 14:00] VITALS: BP 146/65; TEMP 98.1; O2SAT 95
[2023-10-09] MEDS ORDERED: PILL CUTTER 1 EACH XX PRN (15:35)
[2023-10-09 20:00] VITALS: BP 157/70; TEMP 99.8; O2SAT 98
[2023-10-09] MEDS: rOPINIRole 0.25 MG TAB(REQUIP) PO SCH (20:55)
[2023-10-09] MEDS: MONTELUKAST 10 MG TAB PO SCH (20:56)
[2023-10-09] MEDS: traZODone 100 MG TAB PO SCH (21:04)
[2023-10-10 06:00] VITALS: BP 141/65; TEMP 97.7; O2SAT 95
[2023-10-10] MEDS: ADVAIR HFA 230/21MCG INHALER INH SCH ×2 (07:34→21:36)
[2023-10-10] MEDS: GABAPENTIN 100 MG CAP PO SCH ×2 (08:18→20:21)
[2023-10-10] MEDS: ASPIRIN 81MG ENTERIC TABLET PO SCH ×2 (08:18→20:21)
[2023-10-10] MEDS: OMEPRAZOLE 20MG CAP PO SCH (08:18)
[2023-10-10] MEDS: SENNA 8.6 MG TAB (SENOKOT) PO SCH ×2 (08:18→20:21)
[2023-10-10] MEDS: ACETAMINOPHEN 500 MG TAB PO SCH ×3 (08:19→20:21)
[2023-10-10] MEDS: ATORVASTATIN 10 MG TAB PO SCH (08:19)
[2023-10-10] MEDS: ENOXAPARIN 40MG/0.4ML SYRINGE (J1650 PER 10MG) SC SCH (08:19)
[2023-10-10] MEDS: metFORMIN (GLUCOPHAGE) 500MG TAB PO SCH (08:19)
[2023-10-10] MEDS: CitaloPRAM (CeleXA) 20 MG TAB PO SCH (08:19)
[2023-10-10] MEDS: VITAMIN D 1,000 INTERNATIONAL UNITS TABLET PO SCH (08:19)
[2023-10-10] MEDS: LIDOCAINE 5% (LIDODERM) PATCH TD SCH ×2 (08:21→08:22)
[2023-10-10] MEDS: MORPHINE 30 MG TAB **MSIR PO PRN ×2 (13:28→20:20)
[2023-10-10] MEDS: guaiFENesin ER TABLET 600 MG TAB PO PRN (13:58)
[2023-10-10 14:00] VITALS: BP 140/65; TEMP 98.2; O2SAT 98
[2023-10-10 20:00] VITALS: BP 156/71; TEMP 98.3; O2SAT 95
[2023-10-10] MEDS: traZODone 100 MG TAB PO SCH (20:21)
[2023-10-10] MEDS: rOPINIRole 0.25 MG TAB(REQUIP) PO SCH (20:21)
[2023-10-10] MEDS: MONTELUKAST 10 MG TAB PO SCH (20:22)
[2023-10-10] MEDS: busPIRone 10 MG TAB PO PRN (20:22)
[2023-10-11 06:00] VITALS: BP 154/73; TEMP 98; O2SAT 95
[2023-10-11 07:33] LABS: BASO % 0.6 % (0.0-1.0); EOS % 1.8 % (0.0-3.0); HEMATOCRIT 29.6 % (42.0-52.0); HEMOGLOBIN 9.6 g/dl (13.5-17.5); LYMPH # 0.8 10^3/uL (1.5-5.0); LYMPH % 45.5 % (24.0-44.0); MEAN CORPUSCULAR HGB CONC 32.4 g/dl (32.0-36.5); MEAN CORPUSCULAR VOLUME 98.7 fl (80.0-96.0); MONO # 0.2 10^3/uL (0.0-0.8); MONO % 9.7 % (2.0-8.0); NEUTROPHILS % 41.2 % (36.0-66.0); PLATELET COUNT, AUTOMATED 407 10^3/uL (150-450); WHITE BLOOD COUNT 1.7 10^3/uL (4.0-10.0)
[2023-10-11] MEDS: ADVAIR HFA 230/21MCG INHALER INH SCH ×2 (07:39→21:26)
[2023-10-11 07:42] LABS: NEUTROPHILS # 0.7 10^3/uL (1.5-8.5)
[2023-10-11] MEDS: ASPIRIN 81MG ENTERIC TABLET PO SCH ×2 (09:04→20:19)
[2023-10-11] MEDS: ATORVASTATIN 10 MG TAB PO SCH (09:04)
[2023-10-11] MEDS: metFORMIN (GLUCOPHAGE) 500MG TAB PO SCH (09:04)
[2023-10-11] MEDS: CitaloPRAM (CeleXA) 20 MG TAB PO SCH (09:04)
[2023-10-11] MEDS: GABAPENTIN 100 MG CAP PO SCH ×2 (09:04→20:18)
[2023-10-11] MEDS: VITAMIN D 1,000 INTERNATIONAL UNITS TABLET PO SCH (09:05)
[2023-10-11] MEDS: OMEPRAZOLE 20MG CAP PO SCH (09:05)
[2023-10-11] MEDS: ACETAMINOPHEN 500 MG TAB PO SCH ×3 (09:05→20:19)
[2023-10-11] MEDS: SENNA 8.6 MG TAB (SENOKOT) PO SCH ×2 (09:05→20:19)
[2023-10-11] MEDS: LIDOCAINE 5% (LIDODERM) PATCH TD SCH ×2 (09:06→09:21)
[2023-10-11] MEDS: ENOXAPARIN 40MG/0.4ML SYRINGE (J1650 PER 10MG) SC SCH (09:06)
[2023-10-11] MEDS: guaiFENesin ER TABLET 600 MG TAB PO PRN (09:12)
[2023-10-11 14:00] VITALS: BP 140/67; TEMP 98.2; O2SAT 97
[2023-10-11] MEDS: MORPHINE 30 MG TAB **MSIR PO PRN ×2 (14:24→20:19)
[2023-10-11] MEDS: busPIRone 10 MG TAB PO PRN (18:25)
[2023-10-11 20:00] VITALS: BP 132/65; TEMP 98.5; O2SAT 95
[2023-10-11] MEDS: traZODone 100 MG TAB PO SCH (20:18)
[2023-10-11] MEDS: MONTELUKAST 10 MG TAB PO SCH (20:18)
[2023-10-11] MEDS: rOPINIRole 0.25 MG TAB(REQUIP) PO SCH (20:18)
[2023-10-12 06:00] VITALS: BP 139/66; TEMP 97.2; O2SAT 97
[2023-10-12] MEDS: ADVAIR HFA 230/21MCG INHALER INH SCH ×2 (07:25→19:06)
[2023-10-12] MEDS: OMEPRAZOLE 20MG CAP PO SCH (08:16)
[2023-10-12] MEDS: GABAPENTIN 100 MG CAP PO SCH ×2 (08:16→20:55)
[2023-10-12] MEDS: ENOXAPARIN 40MG/0.4ML SYRINGE (J1650 PER 10MG) SC SCH (08:17)
[2023-10-12] MEDS: ATORVASTATIN 10 MG TAB PO SCH (08:17)
[2023-10-12] MEDS: CitaloPRAM (CeleXA) 20 MG TAB PO SCH (08:17)
[2023-10-12] MEDS: metFORMIN (GLUCOPHAGE) 500MG TAB PO SCH (08:17)
[2023-10-12] MEDS: ASPIRIN 81MG ENTERIC TABLET PO SCH ×2 (08:17→20:55)
[2023-10-12] MEDS: ACETAMINOPHEN 500 MG TAB PO SCH ×3 (08:17→20:55)
[2023-10-12] MEDS: VITAMIN D 1,000 INTERNATIONAL UNITS TABLET PO SCH (08:17)
[2023-10-12] MEDS: SENNA 8.6 MG TAB (SENOKOT) PO SCH ×2 (08:17→20:55)
[2023-10-12] MEDS: LIDOCAINE 5% (LIDODERM) PATCH TD SCH ×2 (08:18)
[2023-10-12] MEDS: MORPHINE 30 MG TAB **MSIR PO PRN ×2 (12:35→20:56)
[2023-10-12] MEDS: CYCLOBENZAPRINE 5MG TABLET PO PRN (12:35)
[2023-10-12 14:00] VITALS: BP 129/65; TEMP 98.2; O2SAT 96
[2023-10-12] MEDS: CYCLOBENZAPRINE 5MG TABLET PO SCH ×2 (14:05→20:56)
[2023-10-12] MEDS: MIRALAX *UNIT DOSE* 17GM PACKET PO SCH (15:55)
[2023-10-12 20:00] VITALS: BP 136/65; TEMP 98; O2SAT 95
[2023-10-12] MEDS: rOPINIRole 0.25 MG TAB(REQUIP) PO SCH (20:55)
[2023-10-12] MEDS: traZODone 100 MG TAB PO SCH (20:55)
[2023-10-12] MEDS: MONTELUKAST 10 MG TAB PO SCH (20:56)
[2023-10-12] MEDS ORDERED: GABAPENTIN 100 MG CAP PO SCH (21:00)
[2023-10-13 06:00] VITALS: BP 141/67; TEMP 98.4; O2SAT 97
[2023-10-13] MEDS: ADVAIR HFA 230/21MCG INHALER INH SCH (07:24)
[2023-10-13] MEDS: busPIRone 10 MG TAB PO PRN (08:46)
[2023-10-13] MEDS: ATORVASTATIN 10 MG TAB PO SCH (08:46)
[2023-10-13] MEDS: OMEPRAZOLE 20MG CAP PO SCH (08:46)
[2023-10-13] MEDS: SENNA 8.6 MG TAB (SENOKOT) PO SCH (08:46)
[2023-10-13] MEDS: metFORMIN (GLUCOPHAGE) 500MG TAB PO SCH (08:47)
[2023-10-13] MEDS: VITAMIN D 1,000 INTERNATIONAL UNITS TABLET PO SCH (08:47)
[2023-10-13] MEDS: ASPIRIN 81MG ENTERIC TABLET PO SCH (08:47)
[2023-10-13] MEDS: CitaloPRAM (CeleXA) 20 MG TAB PO SCH (08:47)
[2023-10-13] MEDS: MIRALAX *UNIT DOSE* 17GM PACKET PO SCH (08:47)
[2023-10-13] MEDS: CYCLOBENZAPRINE 5MG TABLET PO SCH (08:47)
[2023-10-13] MEDS: GABAPENTIN 100 MG CAP PO SCH (08:47)
[2023-10-13] MEDS: ACETAMINOPHEN 500 MG TAB PO SCH (08:48)
[2023-10-13] MEDS: ENOXAPARIN 40MG/0.4ML SYRINGE (J1650 PER 10MG) SC SCH (08:49)
[2023-10-13] MEDS: LIDOCAINE 5% (LIDODERM) PATCH TD SCH ×2 (08:54→08:55)
[2023-10-13] MEDS ORDERED: guaiFENesin ER TABLET 600 MG TAB PO SCH (09:00)
[2023-10-13] MEDS ORDERED: MSIR30TA PO (12:07)
[2023-10-13] MEDS ORDERED: ACET-683 PO (12:07)
[2023-10-13] MEDS ORDERED: CYCL5TAB PO (12:07)
== END 2023-10-13 12:40 | disposition home health service (06) | DRG 560 ==
LOC: M PM&R 17:12
PROVIDERS: ADMIT Student in an Organized Health Care Education/Training Program; ATTEND Student in an Organized Health Care Education/Training Program
DX: S72.142D Displaced intertrochanteric fracture of left femur, subsequent encounter for closed fracture with routine healing (principal); D62 Acute posthemorrhagic anemia; N18.30 Chronic kidney disease, stage 3 unspecified; M54.50 Low back pain, unspecified; G89.29 Other chronic pain; E11.22 Type 2 diabetes mellitus with diabetic chronic kidney disease; M47.812 Spondylosis without myelopathy or radiculopathy, cervical region; E78.5 Hyperlipidemia, unspecified; K21.9 Gastro-esophageal reflux disease without esophagitis; J45.909 Unspecified asthma, uncomplicated; H35.30 Unspecified macular degeneration; G89.18 Other acute postprocedural pain; F32.A Depression, unspecified; F41.9 Anxiety disorder, unspecified; K59.00 Constipation, unspecified; G25.81 Restless legs syndrome; H54.8 Legal blindness, as defined in USA; Z74.09 Other reduced mobility; Z74.1 Need for assistance with personal care; R35.0 Frequency of micturition; R30.0 Dysuria; D72.819 Decreased white blood cell count, unspecified; M81.0 Age-related osteoporosis without current pathological fracture; Z79.82 Long term (current) use of aspirin; Z79.899 Other long term (current) drug therapy; Z88.2 Allergy status to sulfonamides; Z88.8 Allergy status to other drugs, medicaments and biological substances

== ENCOUNTER → 2023-10-14 | Outpatient (CLI) | payer MEDICARE ==
[~2023-10-14] MED LIST changes: +ACET-683 PO; +CYCL5TAB PO; +MSIR30TA PO
== END ==
LOC: M SOG 07:57
PROVIDERS: ATTEND Physician Assistant
DX: M25.552 Pain in left hip (principal)

== ENCOUNTER → 2023-10-16 | Outpatient (CLI) | payer MEDICARE ==
[2023-10-16 18:18] LABS: BASO % 0.5 % (0.0-1.0); HEMATOCRIT 35.7 % (42.0-52.0); HEMOGLOBIN 11.1 g/dl (13.5-17.5); LYMPH # 0.8 10^3/uL (1.5-5.0); LYMPH % 36.7 % (24.0-44.0); MEAN CORPUSCULAR HEMOGLOBIN 31.4 pg (27.0-33.0); MEAN CORPUSCULAR HGB CONC 31.1 g/dl (32.0-36.5); MEAN CORPUSCULAR VOLUME 101.1 fl (80.0-96.0); MONO # 0.1 10^3/uL (0.0-0.8); MONO % 5.2 % (2.0-8.0); NEUTROPHILS # 1.2 10^3/uL (1.5-8.5); NEUTROPHILS % 56.1 % (36.0-66.0); PLATELET COUNT, AUTOMATED 445 10^3/uL (150-450); RED BLOOD COUNT 3.53 10^6/uL (4.30-6.10); WHITE BLOOD COUNT 2.1 10^3/uL (4.0-10.0)
[2023-10-16 18:48] LABS: BLOOD UREA NITROGEN 21 MG/DL (9-23); CALCIUM LEVEL 9.2 MG/DL (8.3-10.6); CARBON DIOXIDE LEVEL 27 MMOL/L (20-31); CHLORIDE LEVEL 109 MMOL/L (98-107); CREATININE FOR GFR 1.22 MG/DL (0.70-1.30); GLOMERULAR FILTRATION RATE > 60.0 (>35); GLUCOSE, FASTING 127 MG/DL (74-106); POTASSIUM SERUM 4.6 MMOL/L (3.5-5.1); SODIUM LEVEL 140 MMOL/L (136-145)
== END ==
LOC: M WUC 13:43
PROVIDERS: ATTEND Student in an Organized Health Care Education/Training Program
DX: S72.142D Displaced intertrochanteric fracture of left femur, subsequent encounter for closed fracture with routine healing (principal); D62 Acute posthemorrhagic anemia; N18.30 Chronic kidney disease, stage 3 unspecified; M54.50 Low back pain, unspecified; G89.29 Other chronic pain; Y93.9 Activity, unspecified; Y92.9 Unspecified place or not applicable

== ENCOUNTER → 2023-11-03 | Outpatient (REF) | payer MEDICARE ==
[2023-11-03 12:20] LABS: HEMATOCRIT 34.7 % (42.0-52.0); HEMOGLOBIN 11.2 g/dl (13.5-17.5); MEAN CORPUSCULAR HEMOGLOBIN 33.2 pg (27.0-33.0); MEAN CORPUSCULAR HGB CONC 32.3 g/dl (32.0-36.5); PLATELET COUNT, AUTOMATED 209 10^3/uL (150-450); RED BLOOD COUNT 3.37 10^6/uL (4.30-6.10); WHITE BLOOD COUNT 1.5 10^3/uL (4.0-10.0)
[2023-11-03 12:57] LABS: BLOOD UREA NITROGEN 17 MG/DL (9-23); CALCIUM LEVEL 8.7 MG/DL (8.3-10.6); CARBON DIOXIDE LEVEL 26 MMOL/L (20-31); CHLORIDE LEVEL 104 MMOL/L (98-107); CREATININE FOR GFR 1.08 MG/DL (0.70-1.30); GLOMERULAR FILTRATION RATE > 60.0 (>35); GLUCOSE, FASTING 154 MG/DL (74-106); POTASSIUM SERUM 4.3 MMOL/L (3.5-5.1); SODIUM LEVEL 138 MMOL/L (136-145)
== END ==
LOC: M LAB REF 11:36
PROVIDERS: ATTEND Internal Medicine
DX: I12.9 Hypertensive chronic kidney disease with stage 1 through stage 4 chronic kidney disease, or unspecified chronic kidney disease (principal); N18.9 Chronic kidney disease, unspecified

== ENCOUNTER → 2023-11-04 | Outpatient (CLI) | payer MEDICARE | LOC: M SOG 07:56 | PROVIDERS: ATTEND Physician Assistant | DX: M25.552 Pain in left hip (principal) ==

== ENCOUNTER → 2023-11-05 | Outpatient (REF) | payer MEDICARE ==
[2023-11-05 19:15] LABS: HEMATOCRIT 34.5 % (42.0-52.0); HEMOGLOBIN 10.9 g/dl (13.5-17.5); MEAN CORPUSCULAR HEMOGLOBIN 33.1 pg (27.0-33.0); MEAN CORPUSCULAR HGB CONC 31.6 g/dl (32.0-36.5); MEAN CORPUSCULAR VOLUME 104.9 fl (80.0-96.0); PLATELET COUNT, AUTOMATED 230 10^3/uL (150-450); RED BLOOD COUNT 3.29 10^6/uL (4.30-6.10); WHITE BLOOD COUNT 2.4 10^3/uL (4.0-10.0)
[2023-11-05 19:41] LABS: IRON (FE) 114 UG/DL (65-175); PERCENT SATURATION 41.3 % (19.7-50.0); TOTAL IRON BINDING CAPACITY 276 UG/DL (250-425)
[2023-11-05 19:43] LABS: ERYTHROCYTE SEDIMENTATION RATE 43 mm/hr (0-20)
[2023-11-05 19:48] LABS: FERRITIN 166.2 NG/ML (10.5-307.3); FOLATE > 24.0 NG/ML (>5.4); VITAMIN B12 LEVEL 317 PG/ML (211-911)
[2023-11-05 19:57] LABS: ATYPICAL LYMPH 10 % (0-5); LYMPHOCYTES 34 % (16-44); MONOCYTES 4 % (0-5); NEUTROPHILS 52 % (28-66)
[2023-11-05 19:58] LABS: ANISOCYTOSIS 2+; OVALOCYTES 1+; POIKILOCYTOSIS 1+
[2023-11-05 19:59] LABS: PLATELET ESTIMATE NORMAL (NORMAL)
== END ==
LOC: M LAB REF 18:34
PROVIDERS: ATTEND Internal Medicine
DX: D72.819 Decreased white blood cell count, unspecified (principal); M25.552 Pain in left hip

== ENCOUNTER → 2023-11-11 | Outpatient (REF) | payer MEDICARE ==
[~2023-11-11] MED LIST changes: +ADVA115A; +DEEP; +FERR324T2; +FLUT12HF3; +ROPI1TAB73; +SERT150C
[2023-11-11 12:37] LABS: HEMOGLOBIN 10.5 g/dl (13.5-17.5); MEAN CORPUSCULAR HEMOGLOBIN 32.8 pg (27.0-33.0); MEAN CORPUSCULAR HGB CONC 31.8 g/dl (32.0-36.5); MEAN CORPUSCULAR VOLUME 103.1 fl (80.0-96.0); PLATELET COUNT, AUTOMATED 239 10^3/uL (150-450); WHITE BLOOD COUNT 1.4 10^3/uL (4.0-10.0)
[2023-11-11 12:46] LABS: ERYTHROCYTE SEDIMENTATION RATE 66 mm/hr (0-20)
[2023-11-11 13:12] LABS: TOTAL IRON BINDING CAPACITY 250 UG/DL (250-425); VITAMIN B12 LEVEL 544 PG/ML (211-911)
[2023-11-11 13:13] LABS: ALBUMIN 3.1 G/DL (3.2-5.2); ALKALINE PHOSPHATASE 111 U/L (46-116); ALT/SGPT 15 U/L (7.0-40); AST/SGOT 10 U/L (<34); BILIRUBIN,TOTAL 0.4 MG/DL (0.3-1.2); BLOOD UREA NITROGEN 17 MG/DL (9-23); CALCIUM LEVEL 8.5 MG/DL (8.3-10.6); CARBON DIOXIDE LEVEL 26 MMOL/L (20-31); CHLORIDE LEVEL 109 MMOL/L (98-107); CHOLESTEROL LEVEL 112 MG/DL (<200); CREATININE FOR GFR 1.01 MG/DL (0.70-1.30); FERRITIN 146.2 NG/ML (10.5-307.3); FOLATE 17.2 NG/ML (>5.4); GLOMERULAR FILTRATION RATE > 60.0 (>35); GLUCOSE, FASTING 185 MG/DL (74-106); HDL CHOLESTEROL 46.6 MG/DL (>40); IRON (FE) 110 UG/DL (65-175); NON-HDL-C 65.4 MG/DL; POTASSIUM SERUM 4.6 MMOL/L (3.5-5.1); SODIUM LEVEL 141 MMOL/L (136-145); TOTAL PROTEIN 6.4 G/DL (5.7-8.2); TRIGLYCERIDES LEVEL 72 MG/DL (<150)
[2023-11-11 13:19] LABS: ATYPICAL LYMPH 21 % (0-5); LYMPHOCYTES 18 % (16-44); METAMYELOCYTES 1 % (0-0); MONOCYTES 4 % (0-5); NEUTROPHILS 56 % (28-66)
[2023-11-11 13:21] LABS: PLATELET ESTIMATE INCREASED (NORMAL)
[2023-11-11 13:22] LABS: OVALOCYTES 1+; POLYCHROMASIA 1+; SCHISTOCYTES 1+
[2023-11-13 16:44] LABS: RHEUMATOID FACTOR QUANT < 3.5 IU/ML (<14)
[2023-11-25 15:21] LABS: ANTINUCLEAR ANTIBODIES DIRECT NEGATIVE (NEGATIVE)
== END ==
LOC: M LAB REF 12:12
PROVIDERS: ATTEND Internal Medicine
DX: I12.9 Hypertensive chronic kidney disease with stage 1 through stage 4 chronic kidney disease, or unspecified chronic kidney disease (principal); E78.00 Pure hypercholesterolemia, unspecified; N18.30 Chronic kidney disease, stage 3 unspecified; Z79.899 Other long term (current) drug therapy

== ENCOUNTER → 2023-12-09 | Outpatient (CLI) | payer MEDICARE | LOC: M SOG 08:02 | PROVIDERS: ATTEND Physician Assistant | DX: M25.552 Pain in left hip (principal) ==

== ENCOUNTER → 2023-12-22 | Outpatient (CLI) | payer MEDICARE ==
[~2023-12-22] MED LIST changes: +FLUC200T4 PO; +LIDOCAINE 1% MDV 20ML VIAL As Ordered ONE; +NYST-38 SS
[2023-12-22 12:27] VITALS: TEMP 98.5
[2023-12-22 12:49] LABS: EOS % 0.6 % (0.0-3.0); HEMATOCRIT 28.8 % (42.0-52.0); HEMOGLOBIN 9.3 g/dl (13.5-17.5); LYMPH # 0.8 10^3/uL (1.5-5.0); LYMPH % 49.4 % (24.0-44.0); MEAN CORPUSCULAR HGB CONC 32.3 g/dl (32.0-36.5); MEAN CORPUSCULAR VOLUME 108.3 fl (80.0-96.0); MONO # 0.1 10^3/uL (0.0-0.8); MONO % 5.3 % (2.0-8.0); NEUTROPHILS % 44.7 % (36.0-66.0); PLATELET COUNT, AUTOMATED 119 10^3/uL (150-450); RED BLOOD COUNT 2.66 10^6/uL (4.30-6.10); WHITE BLOOD COUNT 1.7 10^3/uL (4.0-10.0)
[2023-12-22 12:50] LABS: NEUTROPHILS # 0.8 10^3/uL (1.5-8.5)
[2023-12-22 13:04] VITALS: BP 130/69; O2SAT 99
== END ==
LOC: M IRPRO 12:09
PROVIDERS: ATTEND Specialist
DX: D72.819 Decreased white blood cell count, unspecified (principal)

== ENCOUNTER 2023-12-29 20:28 | Emergency (ER) | payer MEDICARE ==
[~2023-12-29] VITALS: Ht 172.7 cm; Wt 73.3 kg
[~2023-12-29 20:28] MED LIST changes: -FLUC200T4 PO; -LIDOCAINE 1% MDV 20ML VIAL As Ordered ONE; -NYST-38 SS
[2023-12-29 23:06] LABS: BASO % 0.5 % (0.0-1.0); HEMATOCRIT 29.5 % (42.0-52.0); HEMOGLOBIN 9.7 g/dl (13.5-17.5); LYMPH # 0.8 10^3/uL (1.5-5.0); MEAN CORPUSCULAR HEMOGLOBIN 35.4 pg (27.0-33.0); MEAN CORPUSCULAR HGB CONC 32.9 g/dl (32.0-36.5); MEAN CORPUSCULAR VOLUME 107.7 fl (80.0-96.0); MONO # 0.2 10^3/uL (0.0-0.8); MONO % 8.5 % (2.0-8.0); NEUTROPHILS % 48.5 % (36.0-66.0); PLATELET COUNT, AUTOMATED 133 10^3/uL (150-450); RED BLOOD COUNT 2.74 10^6/uL (4.30-6.10)
[2023-12-29 23:32] LABS: ALBUMIN 3.4 G/DL (3.2-5.2); BILIRUBIN,TOTAL 0.4 MG/DL (0.3-1.2); CALCIUM LEVEL 9.5 MG/DL (8.3-10.6); CREATININE FOR GFR 1.25 MG/DL (0.70-1.30); GLOMERULAR FILTRATION RATE 58.4 (>35); POTASSIUM SERUM 4.3 MMOL/L (3.5-5.1); TOTAL PROTEIN 7.6 G/DL (5.7-8.2)
[2023-12-30] MEDS ORDERED: FLUC200T4 PO (00:42)
[2023-12-30] MEDS ORDERED: NYST-38 SS (00:42)
[2023-12-30] MEDS: NS 500 ML IV ONE (01:41)
[2023-12-30] MEDS: NS 1,000 ML IV ONE (01:41)
[2023-12-30] MEDS: NYSTATIN 500,000U/5ML SUSP UDC SS STA (02:30)
[2023-12-30] MEDS: FLUCONAZOLE 400 MG in IV 1 EA IV ONE (02:30)
[2023-12-30] MEDS ORDERED: rOPINIRole 2MG TAB PO STA (03:49)
[2023-12-30] MEDS ORDERED: rOPINIRole 1MG TAB PO STA (03:51)
[2023-12-30 04:30] VITALS: BP 118/68; TEMP 97.5; O2SAT 98
== END 2023-12-30 04:55 | disposition home or self-care (01) ==
LOC: M ED 20:28
DX: B37.81 Candidal esophagitis (principal); K21.9 Gastro-esophageal reflux disease without esophagitis; J45.909 Unspecified asthma, uncomplicated; E78.5 Hyperlipidemia, unspecified; Z88.2 Allergy status to sulfonamides; Z88.8 Allergy status to other drugs, medicaments and biological substances; Z79.1 Long term (current) use of non-steroidal anti-inflammatories (NSAID); Z79.51 Long term (current) use of inhaled steroids; Z79.899 Other long term (current) drug therapy
CPT/HCPCS: 80053; 85025; 96361; 96365; 96366; 99284; J1450

== ENCOUNTER → 2023-12-30 | Outpatient (CLI) | payer MEDICARE ==
[~2023-12-30] MED LIST changes: +FLUC200T4 PO; +NYST-38 SS
== END ==
LOC: M SOG 09:44
PROVIDERS: ATTEND Physician Assistant
DX: M25.552 Pain in left hip (principal)

== ENCOUNTER 2024-01-26 12:48 | Inpatient (IN) | payer MEDICARE ==
[2024-01-25 04:04] VITALS: BP 117/87; TEMP 97.7; O2SAT 98
[~2024-01-26] VITALS: Ht 170.2 cm; Wt 75.8 kg
[~2024-01-26 12:48] MED LIST changes: +AZIT-12 PO; +CIPR-249 PO; -FERR324T2; +FERR324T2 PO; -ROPI1TAB73; +ROPI1TAB73 PO
[2024-01-26 13:16] LABS: HEMATOCRIT 25.6 % (42.0-52.0); HEMOGLOBIN 8.5 g/dl (13.5-17.5); MEAN CORPUSCULAR HEMOGLOBIN 35.4 pg (27.0-33.0); MEAN CORPUSCULAR HGB CONC 33.2 g/dl (32.0-36.5); MEAN CORPUSCULAR VOLUME 106.7 fl (80.0-96.0)
[2024-01-26 13:17] LABS: PLATELET COUNT, AUTOMATED 84 10^3/uL (150-450); WHITE BLOOD COUNT 1.3 10^3/uL (4.0-10.0)
[2024-01-26 13:38] LABS: BLOOD UREA NITROGEN 32 MG/DL (9-23); CALCIUM LEVEL 8.7 MG/DL (8.3-10.6); CARBON DIOXIDE LEVEL 23 MMOL/L (20-31); CHLORIDE LEVEL 106 MMOL/L (98-107); CK-MB VALUE MASS 1.8 NG/ML (<3.6); CPK CREATINE PHOSPHOKINASE 30 U/L (46-171); CREATININE FOR GFR 1.11 MG/DL (0.70-1.30); GLOMERULAR FILTRATION RATE > 60.0 (>35); GLUCOSE, FASTING 286 MG/DL (74-106); POTASSIUM SERUM 4.4 MMOL/L (3.5-5.1); SODIUM LEVEL 138 MMOL/L (136-145)
[2024-01-26 13:42] LABS: LYMPHOCYTES 37 % (16-44); NEUTROPHILS 63 % (28-66); PLATELET ESTIMATE MARKED DECREASE (NORMAL)
[2024-01-26 13:44] LABS: OVALOCYTES 3+
[2024-01-26 13:45] LABS: ANISOCYTOSIS 2+; SPHEROCYTES 2+
[2024-01-26 14:14] LABS: CK-MB VALUE MASS 1.8 NG/ML (<3.6)
[2024-01-26 14:16] LABS: MB/CK RELATIVE INDEX 7.5 (< OR =4)
[2024-01-26] MEDS: NS 500 ML IV ONE (14:51)
[2024-01-26 15:02] LABS: ALBUMIN 2.9 G/DL (3.2-5.2); ALKALINE PHOSPHATASE 62 U/L (46-116); ALT/SGPT 17 U/L (7.0-40); AST/SGOT < 8 U/L (<34); BILIRUBIN,DIRECT 0.1 MG/DL (<0.4); BILIRUBIN,TOTAL 0.3 MG/DL (0.3-1.2); TOTAL PROTEIN 6.4 G/DL (5.7-8.2)
[2024-01-26 15:36] LABS: HEMOGLOBIN A1c 7.8 % (4.0-6.0)
[2024-01-26] MEDS ORDERED: ISOVUE-370 76% 100ML VIAL As Ordered ONE (16:31)
[2024-01-26] MEDS: ALBUTEROL 90 MCG/ACT 8GM HFA INHALER INH SCH (16:36)
[2024-01-26] MEDS ORDERED: ASPI-615 PO (16:57)
[2024-01-26] MEDS ORDERED: DULO1CAP6 PO (16:57)
[2024-01-26] MEDS ORDERED: ADVA115A INH (16:57)
[2024-01-26] MEDS ORDERED: ACET-897 PO (16:57)
[2024-01-26] MEDS ORDERED: GABA600T4 PO ×2 (16:57→17:00)
[2024-01-26] MEDS ORDERED: SUPETAB56 PO (16:58)
[2024-01-26] MEDS ORDERED: MUCI600T31 PO (16:59)
[2024-01-26] MEDS ORDERED: HOME MED LIST COMPLETE! XX SCH (17:00)
[2024-01-26] MEDS: dexAMETHasone 20MG/5ML VIAL IV ONE (17:02)
[2024-01-26 18:03] LABS: FREE T4 0.99 NG/DL (0.89-1.76); THYROID STIMULATING HORMONE 0.607 uIU/ML (0.55-4.78)
[2024-01-26] MEDS: OSELTAMIVIR PHOSPHATE 75 MG CAP (TAMIFLU) PO ONE (18:51)
[2024-01-26] MEDS: cefTRIAXone SOD 1 GM in D5W MINI-BAG PLUS 50 ML IV ONE (18:52)
[2024-01-26] MEDS ORDERED: GLUCAGON INJ 1MG VIAL SC PRN (19:40)
[2024-01-26] MEDS ORDERED: DEXTROSE 50% 50ML SYRINGE IV PRN (19:40)
[2024-01-26] MEDS ORDERED: GLUCOSE 4 GM CHEW PO PRN (19:40)
[2024-01-26] MEDS: INSULIN LISPRO (NovoLOG) PER UNIT SC SCH (21:00)
[2024-01-26] MEDS ORDERED: OSELTAMIVIR PHOSPHATE 30MG CAPSULE PO SCH (21:00)
[2024-01-26] MEDS: ATORVASTATIN 10 MG TAB PO SCH (21:43)
[2024-01-26] MEDS: busPIRone 10 MG TAB PO SCH (21:43)
[2024-01-26] MEDS: rOPINIRole 1MG TAB PO SCH (21:43)
[2024-01-26] MEDS: GABAPENTIN 300 MG CAP PO SCH (21:44)
[2024-01-26] MEDS: traZODone 100 MG TAB PO SCH (21:44)
[2024-01-26] MEDS: guaiFENesin ER TABLET 600 MG TAB PO PRN (21:44)
[2024-01-26] MEDS: MONTELUKAST 10 MG TAB PO SCH (21:44)
[2024-01-26] MEDS: ALBUTEROL 90 MCG/ACT 8GM HFA INHALER INH PRN (21:48)
[2024-01-26] MEDS: ACETAMINOPHEN *IV* 1,000 MG in IV 1 EA IV ONE (23:10)
[2024-01-27 00:01] LABS: BLOOD UREA NITROGEN 32 MG/DL (9-23); CALCIUM LEVEL 8.3 MG/DL (8.3-10.6); CARBON DIOXIDE LEVEL 20 MMOL/L (20-31); CHLORIDE LEVEL 108 MMOL/L (98-107); CREATININE FOR GFR 1.11 MG/DL (0.70-1.30); GLOMERULAR FILTRATION RATE > 60.0 (>35); GLUCOSE, FASTING 364 MG/DL (74-106); POTASSIUM SERUM 4.8 MMOL/L (3.5-5.1); SODIUM LEVEL 138 MMOL/L (136-145)
[2024-01-27 04:04] VITALS: BP 117/87; TEMP 97.7; O2SAT 98
[2024-01-27 06:52] LABS: HEMATOCRIT 23.9 % (42.0-52.0); MEAN CORPUSCULAR HEMOGLOBIN 35.4 pg (27.0-33.0); MEAN CORPUSCULAR HGB CONC 33.5 g/dl (32.0-36.5); MEAN CORPUSCULAR VOLUME 105.8 fl (80.0-96.0); RED BLOOD COUNT 2.26 10^6/uL (4.30-6.10)
[2024-01-27 06:59] LABS: PLATELET COUNT, AUTOMATED 67 10^3/uL (150-450); WHITE BLOOD COUNT 0.9 10^3/uL (4.0-10.0)
[2024-01-27 07:03] LABS: ALBUMIN 2.8 G/DL (3.2-5.2); ALKALINE PHOSPHATASE 51 U/L (46-116); ALT/SGPT 16 U/L (7.0-40); AST/SGOT < 8 U/L (<34); BILIRUBIN,TOTAL 0.3 MG/DL (0.3-1.2); BLOOD UREA NITROGEN 32 MG/DL (9-23); CALCIUM LEVEL 8.2 MG/DL (8.3-10.6); CARBON DIOXIDE LEVEL 20 MMOL/L (20-31); CHLORIDE LEVEL 108 MMOL/L (98-107); CREATININE FOR GFR 1.13 MG/DL (0.70-1.30); GLOMERULAR FILTRATION RATE > 60.0 (>35); GLUCOSE, FASTING 285 MG/DL (74-106); POTASSIUM SERUM 4.9 MMOL/L (3.5-5.1); SODIUM LEVEL 137 MMOL/L (136-145); TOTAL PROTEIN 6.1 G/DL (5.7-8.2)
[2024-01-27] MEDS: ADVAIR HFA 115/21MCG INHALER INH SCH (08:05)
[2024-01-27] MEDS: ASPIRIN 81MG ENTERIC TABLET PO SCH (09:03)
[2024-01-27] MEDS: OMEPRAZOLE 20MG CAP PO SCH (09:04)
[2024-01-27] MEDS: DULoxetine 30MG CAPSULE (CYMBALTA) PO SCH (09:04)
[2024-01-27] MEDS: VITAMIN D 1,000 INTERNATIONAL UNITS TABLET PO SCH (09:04)
[2024-01-27] MEDS: OSELTAMIVIR PHOSPHATE 30MG CAPSULE PO SCH (09:04)
[2024-01-27] MEDS: INSULIN LISPRO (NovoLOG) PER UNIT SC SCH (09:05)
[2024-01-27] MEDS: dilTIAZem 30 MG TAB PO SCH (09:05)
[2024-01-27 14:00] VITALS: BP 117/81; TEMP 98.1; O2SAT 99
[2024-01-27] MEDS: cefTRIAXone SOD 1 GM in D5W MINI-BAG PLUS 50 ML IV SCH (17:14)
[2024-01-27] MEDS: GABAPENTIN 300 MG CAP PO SCH (17:15)
[2024-01-27 19:44] VITALS: BP 115/78; TEMP 97.9; O2SAT 98
[2024-01-27] MEDS: LEVEMIR (INSULIN DETEMIR) 1 UNITS/0.01ML SC SCH (21:56)
[2024-01-27 23:43] VITALS: BP 97/62; O2SAT 94
[2024-01-27 23:48] VITALS: BP 96/54
[2024-01-28 06:15] VITALS: BP_SYST 109; BP_SYST 111; BP_DIAS 71; TEMP 97.7; O2SAT 97
[2024-01-28 07:02] LABS: HEMATOCRIT 21.5 % (42.0-52.0); HEMOGLOBIN 7.2 g/dl (13.5-17.5); LYMPH # 0.9 10^3/uL (1.5-5.0); LYMPH % 79.3 % (24.0-44.0); MEAN CORPUSCULAR HEMOGLOBIN 35.5 pg (27.0-33.0); MEAN CORPUSCULAR HGB CONC 33.5 g/dl (32.0-36.5); MEAN CORPUSCULAR VOLUME 105.9 fl (80.0-96.0); MONO % 1.8 % (2.0-8.0); NEUTROPHILS % 15.3 % (36.0-66.0); RED BLOOD COUNT 2.03 10^6/uL (4.30-6.10); WHITE BLOOD COUNT 1.1 10^3/uL (4.0-10.0)
[2024-01-28 07:12] LABS: NEUTROPHILS # 0.2 10^3/uL (1.5-8.5); PLATELET COUNT, AUTOMATED 55 10^3/uL (150-450)
[2024-01-28 07:27] LABS: BLOOD UREA NITROGEN 27 MG/DL (9-23); CALCIUM LEVEL 8.2 MG/DL (8.3-10.6); CARBON DIOXIDE LEVEL 25 MMOL/L (20-31); CHLORIDE LEVEL 111 MMOL/L (98-107); CREATININE FOR GFR 1.08 MG/DL (0.70-1.30); GLOMERULAR FILTRATION RATE > 60.0 (>35); GLUCOSE, FASTING 158 MG/DL (74-106); POTASSIUM SERUM 4.6 MMOL/L (3.5-5.1); SODIUM LEVEL 141 MMOL/L (136-145)
[2024-01-28] MEDS: ACETAMINOPHEN TAB 650MG DOSE (2X325MG) PO PRN (11:20)
[2024-01-28] MEDS: FILGRASTIM 300MCG 0.5ML SYRINGE **SC ADMINISTRATION ONLY SC SCH (12:39)
[2024-01-28 13:16] VITALS: BP 130/84; TEMP 97.9; O2SAT 96
[2024-01-28 13:27] VITALS: BP 113/67; TEMP 97.7; O2SAT 95
[2024-01-28 14:00] VITALS: BP 112/69; TEMP 97.9; O2SAT 96
[2024-01-28] MEDS ORDERED: GABAPENTIN 300 MG CAP PO SCH (14:30)
[2024-01-28 14:48] VITALS: BP 113/69; TEMP 97.9; O2SAT 96
[2024-01-28 19:08] LABS: HEMATOCRIT 26.1 % (42.0-52.0); HEMOGLOBIN 8.8 g/dl (13.5-17.5)
[2024-01-28 21:48] VITALS: BP 113/70; TEMP 98.1; O2SAT 95
[2024-01-29 05:52] VITALS: BP 125/83; TEMP 97.7; O2SAT 95
[2024-01-29 08:35] LABS: BASO % 0.7 % (0.0-1.0); EOS % 0.7 % (0.0-3.0); HEMATOCRIT 26.9 % (42.0-52.0); HEMOGLOBIN 9.1 g/dl (13.5-17.5); LYMPH % 68.3 % (24.0-44.0); MEAN CORPUSCULAR HEMOGLOBIN 34.6 pg (27.0-33.0); MEAN CORPUSCULAR HGB CONC 33.8 g/dl (32.0-36.5); MEAN CORPUSCULAR VOLUME 102.3 fl (80.0-96.0); MONO # 0.1 10^3/uL (0.0-0.8); MONO % 3.4 % (2.0-8.0); NEUTROPHILS % 24.8 % (36.0-66.0); RED BLOOD COUNT 2.63 10^6/uL (4.30-6.10); WHITE BLOOD COUNT 1.5 10^3/uL (4.0-10.0)
[2024-01-29 08:36] LABS: NEUTROPHILS # 0.4 10^3/uL (1.5-8.5); PLATELET COUNT, AUTOMATED 43 10^3/uL (150-450)
[2024-01-29 09:09] LABS: ALBUMIN 2.5 G/DL (3.2-5.2); ALKALINE PHOSPHATASE 45 U/L (46-116); ALT/SGPT 16 U/L (7.0-40); AST/SGOT 12 U/L (<34); BILIRUBIN,TOTAL 0.7 MG/DL (0.3-1.2); BLOOD UREA NITROGEN 20 MG/DL (9-23); CALCIUM LEVEL 8.4 MG/DL (8.3-10.6); CARBON DIOXIDE LEVEL 25 MMOL/L (20-31); CHLORIDE LEVEL 111 MMOL/L (98-107); CREATININE FOR GFR 0.97 MG/DL (0.70-1.30); GLOMERULAR FILTRATION RATE > 60.0 (>35); GLUCOSE, FASTING 80 MG/DL (74-106); MAGNESIUM LEVEL 1.9 MG/DL (1.8-2.4); SODIUM LEVEL 144 MMOL/L (136-145); TOTAL PROTEIN 5.9 G/DL (5.7-8.2)
[2024-01-29] MEDS: FUROSEMIDE 40MG/4ML VIAL IV SCH (14:00)
[2024-01-29 14:12] VITALS: BP 93/50; TEMP 97.9; O2SAT 96
[2024-01-29 19:47] VITALS: BP 105/83; TEMP 97.7; O2SAT 97
[2024-01-30 06:23] VITALS: BP 104/61; TEMP 97.7; O2SAT 98
[2024-01-30 07:13] LABS: BASO % 0.8 % (0.0-1.0); EOS % 0.8 % (0.0-3.0); HEMATOCRIT 26.5 % (42.0-52.0); HEMOGLOBIN 8.8 g/dl (13.5-17.5); LYMPH # 0.9 10^3/uL (1.5-5.0); LYMPH % 68.5 % (24.0-44.0); MEAN CORPUSCULAR HEMOGLOBIN 34.2 pg (27.0-33.0); MEAN CORPUSCULAR HGB CONC 33.2 g/dl (32.0-36.5); MEAN CORPUSCULAR VOLUME 103.1 fl (80.0-96.0); MONO # 0.1 10^3/uL (0.0-0.8); MONO % 5.4 % (2.0-8.0); NEUTROPHILS % 21.4 % (36.0-66.0); RED BLOOD COUNT 2.57 10^6/uL (4.30-6.10); WHITE BLOOD COUNT 1.3 10^3/uL (4.0-10.0)
[2024-01-30 07:19] LABS: NEUTROPHILS # 0.3 10^3/uL (1.5-8.5); PLATELET COUNT, AUTOMATED 35 10^3/uL (150-450)
[2024-01-30 07:38] LABS: ALBUMIN 2.4 G/DL (3.2-5.2); ALKALINE PHOSPHATASE 50 U/L (46-116); ALT/SGPT 17 U/L (7.0-40); AST/SGOT < 8 U/L (<34); BILIRUBIN,TOTAL 0.6 MG/DL (0.3-1.2); BLOOD UREA NITROGEN 17 MG/DL (9-23); CALCIUM LEVEL 8.4 MG/DL (8.3-10.6); CARBON DIOXIDE LEVEL 25 MMOL/L (20-31); CHLORIDE LEVEL 110 MMOL/L (98-107); CREATININE FOR GFR 0.99 MG/DL (0.70-1.30); GLOMERULAR FILTRATION RATE > 60.0 (>35); GLUCOSE, FASTING 78 MG/DL (74-106); MAGNESIUM LEVEL 1.8 MG/DL (1.8-2.4); POTASSIUM SERUM 3.9 MMOL/L (3.5-5.1); SODIUM LEVEL 144 MMOL/L (136-145); TOTAL PROTEIN 5.7 G/DL (5.7-8.2)
[2024-01-30] MEDS: MAG SULF 1GM/100ML (MAG RUN) 1 GM in IV 1 EA IV ONE (09:36)
[2024-01-30 13:51] VITALS: BP 100/50; TEMP 97.7; O2SAT 96
[2024-01-30 20:00] VITALS: BP 114/64; TEMP 98.2; O2SAT 96
[2024-01-30] MEDS: METOPROLOL TART 50 MG TAB PO SCH (21:39)
[2024-01-31] MEDS: PIPERACILLIN/TAZOBACTAM SOD 3.375 GM in D5W MINI-BAG PLUS 50 ML IV SCH (00:06)
[2024-01-31 06:00] VITALS: BP 86/54; TEMP 97.3; O2SAT 95
[2024-01-31 06:12] VITALS: BP 92/52
[2024-01-31 07:26] LABS: EOS % 1.4 % (0.0-3.0); HEMATOCRIT 27.8 % (42.0-52.0); HEMOGLOBIN 9.1 g/dl (13.5-17.5); LYMPH % 68.9 % (24.0-44.0); MEAN CORPUSCULAR HEMOGLOBIN 33.8 pg (27.0-33.0); MEAN CORPUSCULAR HGB CONC 32.7 g/dl (32.0-36.5); MEAN CORPUSCULAR VOLUME 103.3 fl (80.0-96.0); MONO # 0.1 10^3/uL (0.0-0.8); MONO % 5.4 % (2.0-8.0); NEUTROPHILS % 24.3 % (36.0-66.0); RED BLOOD COUNT 2.69 10^6/uL (4.30-6.10); WHITE BLOOD COUNT 1.5 10^3/uL (4.0-10.0)
[2024-01-31 07:31] LABS: NEUTROPHILS # 0.4 10^3/uL (1.5-8.5); PLATELET COUNT, AUTOMATED 37 10^3/uL (150-450)
[2024-01-31 07:50] LABS: CALCIUM LEVEL 8.5 MG/DL (8.3-10.6); CREATININE FOR GFR 1.26 MG/DL (0.70-1.30); GLOMERULAR FILTRATION RATE 57.9 (>35); POTASSIUM SERUM 4.1 MMOL/L (3.5-5.1)
[2024-01-31] MEDS: METOPROLOL TART 25 MG TABLET PO SCH (10:35)
[2024-01-31 14:00] VITALS: BP 102/60; TEMP 97.2; O2SAT 97
[2024-01-31] MEDS ORDERED: FUROSEMIDE 40 MG TAB PO SCH (14:00)
[2024-01-31] MEDS: AZITHROMYCIN 250MG TABLET PO SCH (16:00)
[2024-01-31 20:00] VITALS: BP 103/62; TEMP 98.1; O2SAT 96
[2024-01-31] MEDS: LEVEMIR (INSULIN DETEMIR) 1 UNITS/0.01ML SC SCH (22:16)
[2024-02-01 06:21] VITALS: BP 110/67; TEMP 97.9; O2SAT 96
[2024-02-01 06:39] LABS: EOS % 0.7 % (0.0-3.0); HEMATOCRIT 24.4 % (42.0-52.0); LYMPH # 0.9 10^3/uL (1.5-5.0); LYMPH % 66.2 % (24.0-44.0); MEAN CORPUSCULAR HEMOGLOBIN 34.3 pg (27.0-33.0); MEAN CORPUSCULAR HGB CONC 32.8 g/dl (32.0-36.5); MEAN CORPUSCULAR VOLUME 104.7 fl (80.0-96.0); MONO # 0.1 10^3/uL (0.0-0.8); MONO % 6.6 % (2.0-8.0); NEUTROPHILS % 17.7 % (36.0-66.0); RED BLOOD COUNT 2.33 10^6/uL (4.30-6.10); WHITE BLOOD COUNT 1.4 10^3/uL (4.0-10.0)
[2024-02-01 06:50] LABS: NEUTROPHILS # 0.2 10^3/uL (1.5-8.5); PLATELET COUNT, AUTOMATED 29 10^3/uL (150-450)
[2024-02-01 07:04] LABS: BLOOD UREA NITROGEN 15 MG/DL (9-23); CALCIUM LEVEL 7.8 MG/DL (8.3-10.6); CARBON DIOXIDE LEVEL 28 MMOL/L (20-31); CHLORIDE LEVEL 108 MMOL/L (98-107); CREATININE FOR GFR 1.24 MG/DL (0.70-1.30); GLUCOSE, FASTING 109 MG/DL (74-106); MAGNESIUM LEVEL 1.8 MG/DL (1.8-2.4); POTASSIUM SERUM 4.1 MMOL/L (3.5-5.1); SODIUM LEVEL 144 MMOL/L (136-145)
[2024-02-01] MEDS: FILGRASTIM 480 MCG/0.8 ML SYRINGE **SC ADMINISTRATION ONLY SC SCH (10:08)
[2024-02-01 10:32] LABS: IMMUNOGLOBULIN G 520 MG/DL (650-1600)
[2024-02-01 10:44] LABS: PROCALCITONIN 0.09 ng/ml
[2024-02-01 10:46] LABS: IMMUNOGLOBULIN A > 540.0 MG/DL (40-350)
[2024-02-01 14:00] VITALS: BP 96/51; TEMP 97.9; O2SAT 93
[2024-02-01 22:00] VITALS: BP 106/66; TEMP 98.1; O2SAT 98
[2024-02-02 03:57] VITALS: BP 104/67; TEMP 97.5; O2SAT 97
[2024-02-02 05:11] VITALS: BP 101/65; TEMP 97.2; O2SAT 93
[2024-02-02] MEDS: LevoFLOXacin 750 MG TABLET PO SCH (06:50)
[2024-02-02] MEDS: FUROSEMIDE 20 MG TAB PO SCH (08:39)
[2024-02-02 10:10] LABS: EOS % 0.7 % (0.0-3.0); HEMOGLOBIN 8.2 g/dl (13.5-17.5); LYMPH # 0.7 10^3/uL (1.5-5.0); MEAN CORPUSCULAR HGB CONC 32.8 g/dl (32.0-36.5); MEAN CORPUSCULAR VOLUME 106.8 fl (80.0-96.0); MONO # 0.1 10^3/uL (0.0-0.8); MONO % 9.3 % (2.0-8.0); RED BLOOD COUNT 2.34 10^6/uL (4.30-6.10); WHITE BLOOD COUNT 1.5 10^3/uL (4.0-10.0)
[2024-02-02 10:16] LABS: NEUTROPHILS # 0.7 10^3/uL (1.5-8.5)
[2024-02-02 10:18] LABS: PLATELET COUNT, AUTOMATED 27 10^3/uL (150-450)
[2024-02-02 10:33] LABS: BLOOD UREA NITROGEN 10 MG/DL (9-23); CALCIUM LEVEL 8.2 MG/DL (8.3-10.6); CARBON DIOXIDE LEVEL 27 MMOL/L (20-31); CHLORIDE LEVEL 108 MMOL/L (98-107); CREATININE FOR GFR 1.11 MG/DL (0.70-1.30); GLOMERULAR FILTRATION RATE > 60.0 (>35); GLUCOSE, FASTING 153 MG/DL (74-106); MAGNESIUM LEVEL 1.8 MG/DL (1.8-2.4); PHOSPHORUS LEVEL 2.8 MG/DL (2.4-5.1); POTASSIUM SERUM 4.5 MMOL/L (3.5-5.1); SODIUM LEVEL 141 MMOL/L (136-145)
[2024-02-02 14:00] VITALS: BP 96/57; TEMP 97.9; O2SAT 97
[2024-02-02 20:38] VITALS: BP 107/56; TEMP 97.7; O2SAT 98
[2024-02-03] VITALS (8 sets, daily range): BP systolic 88–119; BP diastolic 55–69; TEMP 97.7–98.1; O2SAT 94–100
[2024-02-03 09:36] LABS: HEMATOCRIT 24.9 % (42.0-52.0); HEMOGLOBIN 8.2 g/dl (13.5-17.5); MEAN CORPUSCULAR HEMOGLOBIN 34.7 pg (27.0-33.0); MEAN CORPUSCULAR HGB CONC 32.9 g/dl (32.0-36.5); MEAN CORPUSCULAR VOLUME 105.5 fl (80.0-96.0); RED BLOOD COUNT 2.36 10^6/uL (4.30-6.10)
[2024-02-03] MEDS: NS 500 ML IV ONE (09:49)
[2024-02-03] MEDS: MIDODRINE 5 MG TAB PO SCH (09:49)
[2024-02-03 09:50] LABS: PLATELET COUNT, AUTOMATED 29 10^3/uL (150-450)
[2024-02-03 10:59] LABS: ATYPICAL LYMPH 6 % (0-5); LYMPHOCYTES 46 % (16-44); METAMYELOCYTES 2 % (0-0); MONOCYTES 8 % (0-5); NEUTROPHILS 30 % (28-66)
[2024-02-03 11:00] LABS: ANISOCYTOSIS 2+; HYPOCHROMASIA 1+
[2024-02-03 11:02] LABS: POIKILOCYTOSIS 1+
[2024-02-03 11:05] LABS: PLATELET ESTIMATE MARKED DECREASE (NORMAL)
[2024-02-03] MEDS: METOPROLOL TART 12.5 MG PER 1/2 TAB PO SCH (21:00)
[2024-02-03] MEDS: GABAPENTIN 300 MG CAP PO SCH (21:38)
[2024-02-04 06:00] VITALS: BP 118/68; TEMP 98.1; O2SAT 97
[2024-02-04] MEDS ORDERED: LEVO1TAB40 PO (09:36)
[2024-02-04 11:04] LABS: HEMATOCRIT 27.4 % (42.0-52.0); HEMOGLOBIN 9.3 g/dl (13.5-17.5); LYMPH # 0.6 10^3/uL (1.5-5.0); LYMPH % 29.3 % (24.0-44.0); MEAN CORPUSCULAR HEMOGLOBIN 34.6 pg (27.0-33.0); MEAN CORPUSCULAR HGB CONC 33.9 g/dl (32.0-36.5); MEAN CORPUSCULAR VOLUME 101.9 fl (80.0-96.0); MONO # 0.4 10^3/uL (0.0-0.8); MONO % 19.1 % (2.0-8.0); NEUTROPHILS % 50.5 % (36.0-66.0); RED BLOOD COUNT 2.69 10^6/uL (4.30-6.10); WHITE BLOOD COUNT 1.9 10^3/uL (4.0-10.0)
[2024-02-04 11:35] LABS: PLATELET COUNT, AUTOMATED 36 10^3/uL (150-450)
[2024-02-04 14:00] VITALS: BP 107/67; TEMP 97.9; O2SAT 96
[2024-02-04 20:29] VITALS: BP 103/58; TEMP 98.1; O2SAT 97
[2024-02-05 05:06] VITALS: BP 104/59; TEMP 97.9; O2SAT 94
[2024-02-05 09:24] LABS: BASO % 0.6 % (0.0-1.0); EOS % 0.6 % (0.0-3.0); HEMATOCRIT 26.6 % (42.0-52.0); HEMOGLOBIN 8.9 g/dl (13.5-17.5); LYMPH # 0.6 10^3/uL (1.5-5.0); MEAN CORPUSCULAR HEMOGLOBIN 34.4 pg (27.0-33.0); MEAN CORPUSCULAR HGB CONC 33.5 g/dl (32.0-36.5); MEAN CORPUSCULAR VOLUME 102.7 fl (80.0-96.0); MONO # 0.4 10^3/uL (0.0-0.8); MONO % 22.7 % (2.0-8.0); NEUTROPHILS % 38.6 % (36.0-66.0); RED BLOOD COUNT 2.59 10^6/uL (4.30-6.10); WHITE BLOOD COUNT 1.6 10^3/uL (4.0-10.0)
[2024-02-05 09:29] LABS: NEUTROPHILS # 0.6 10^3/uL (1.5-8.5)
[2024-02-05 09:30] LABS: PLATELET COUNT, AUTOMATED 49 10^3/uL (150-450)
[2024-02-05 14:00] VITALS: BP 100/58; TEMP 97.9; O2SAT 95
[2024-02-05] MEDS ORDERED: ENTR1TAB PO (18:12)
[2024-02-05] MEDS ORDERED: CARV6.25 PO (18:12)
[2024-02-05] MEDS ORDERED: ALDA25TA2 PO (18:12)
[2024-02-05 20:08] VITALS: BP 107/66; TEMP 98.1; O2SAT 96
[2024-02-05] MEDS: CARVedilol 6.25 MG TAB PO SCH (20:14)
[2024-02-05] MEDS: ENTRESTO 24-26MG TABLET (SACUBITRIL/VALSARTAN) PO SCH (20:15)
[2024-02-06 06:35] VITALS: BP 104/65; TEMP 97.9; O2SAT 96
[2024-02-06 08:33] VITALS: BP 105/70
[2024-02-06] MEDS: SPIRONOLACTONE 25 MG TAB PO SCH (08:33)
[2024-02-08] MEDS ORDERED: NEUR300C PO (17:26)
== END 2024-02-06 12:26 | disposition home health service (06) | DRG 193 ==
LOC: M ED 12:48 → M ED INP 19:08 → M MSPAV 01-27 04:05
PROVIDERS: ADMIT Hospitalist; ATTEND General Practice
PROC: 3E0333Z Introduction of Anti-inflammatory into Peripheral Vein, Percutaneous Approach (ICD-10-PCS; 2024-01-26)
PROC: 30233N1 Transfusion of Nonautologous Red Blood Cells into Peripheral Vein, Percutaneous Approach (ICD-10-PCS; principal; 2024-01-28)
PROC: B246ZZZ Ultrasonography of Right and Left Heart (ICD-10-PCS; 2024-01-28)
DX: J10.1 Influenza due to other identified influenza virus with other respiratory manifestations (principal); D61.810 Antineoplastic chemotherapy induced pancytopenia; I50.23 Acute on chronic systolic (congestive) heart failure; D84.9 Immunodeficiency, unspecified; E11.22 Type 2 diabetes mellitus with diabetic chronic kidney disease; N18.30 Chronic kidney disease, stage 3 unspecified; E78.5 Hyperlipidemia, unspecified; J18.9 Pneumonia, unspecified organism; J45.909 Unspecified asthma, uncomplicated; K21.9 Gastro-esophageal reflux disease without esophagitis; D46.9 Myelodysplastic syndrome, unspecified; I08.1 Rheumatic disorders of both mitral and tricuspid valves; M54.50 Low back pain, unspecified; G89.29 Other chronic pain; I27.20 Pulmonary hypertension, unspecified; F32.A Depression, unspecified; F41.9 Anxiety disorder, unspecified; G25.81 Restless legs syndrome; M81.0 Age-related osteoporosis without current pathological fracture; Z79.82 Long term (current) use of aspirin; Z79.899 Other long term (current) drug therapy; Z88.2 Allergy status to sulfonamides; Z88.8 Allergy status to other drugs, medicaments and biological substances; Z86.16 Personal history of COVID-19; Z95.810 Presence of automatic (implantable) cardiac defibrillator

== ENCOUNTER → 2024-02-10 | Outpatient (REF) | payer MEDICARE ==
[~2024-02-10] MED LIST changes: +ACET-897 PO; +ADVA115A INH; +ALDA25TA2 PO; +ASPI-615 PO; +CARV6.25 PO; +DULO1CAP6 PO; +ENTR1TAB PO; +GABA600T4 PO; +LEVO1TAB40 PO; +MUCI600T31 PO; +NEUR300C PO; +SUPETAB56 PO
[2024-02-10 14:41] LABS: HEMATOCRIT 25.7 % (42.0-52.0); HEMOGLOBIN 8.5 g/dl (13.5-17.5); LYMPH # 0.5 10^3/uL (1.5-5.0); LYMPH % 39.7 % (24.0-44.0); MEAN CORPUSCULAR HEMOGLOBIN 34.6 pg (27.0-33.0); MEAN CORPUSCULAR HGB CONC 33.1 g/dl (32.0-36.5); MEAN CORPUSCULAR VOLUME 104.5 fl (80.0-96.0); MONO % 3.1 % (2.0-8.0); NEUTROPHILS % 56.4 % (36.0-66.0); PLATELET COUNT, AUTOMATED 154 10^3/uL (150-450); RED BLOOD COUNT 2.46 10^6/uL (4.30-6.10); WHITE BLOOD COUNT 1.3 10^3/uL (4.0-10.0)
[2024-02-10 15:07] LABS: NEUTROPHILS # 0.7 10^3/uL (1.5-8.5)
== END ==
LOC: M SHH 13:49
PROVIDERS: ATTEND Specialist
DX: D46.9 Myelodysplastic syndrome, unspecified (principal)

== ENCOUNTER → 2024-02-11 | Outpatient (REF) | payer MEDICARE | LOC: M LAB REF 16:18 | PROVIDERS: ATTEND Nurse Practitioner Family | DX: R06.02 Shortness of breath (principal) ==

== ENCOUNTER → 2024-02-19 | Outpatient (CLI) | payer MEDICARE ==
[~2024-02-19] VITALS: Ht 170.2 cm; Wt 71.4 kg
[~2024-02-19] MED LIST changes: +AMOX125C PO
[2024-02-19 10:47] VITALS: BP 111/65; O2SAT 98
== END ==
LOC: M PAL 10:23
PROVIDERS: ATTEND Nurse Practitioner Adult Health
DX: G89.29 Other chronic pain (principal); D46.9 Myelodysplastic syndrome, unspecified; R63.0 Anorexia; R53.1 Weakness; R06.09 Other forms of dyspnea; I50.9 Heart failure, unspecified; Z51.5 Encounter for palliative care; Z66 Do not resuscitate; Z79.51 Long term (current) use of inhaled steroids; Z79.82 Long term (current) use of aspirin; Z79.899 Other long term (current) drug therapy; Z88.1 Allergy status to other antibiotic agents; Z88.2 Allergy status to sulfonamides; Z88.5 Allergy status to narcotic agent

== ENCOUNTER → 2024-02-25 | Outpatient (REF) | payer MEDICARE ==
[2024-02-25 15:07] LABS: BASO % 0.6 % (0.0-1.0); EOS % 0.2 % (0.0-3.0); HEMATOCRIT 36.6 % (42.0-52.0); HEMOGLOBIN 11.6 g/dl (13.5-17.5); LYMPH % 19.7 % (24.0-44.0); MEAN CORPUSCULAR HEMOGLOBIN 33.8 pg (27.0-33.0); MEAN CORPUSCULAR HGB CONC 31.7 g/dl (32.0-36.5); MEAN CORPUSCULAR VOLUME 106.7 fl (80.0-96.0); MONO # 0.4 10^3/uL (0.0-0.8); MONO % 8.1 % (2.0-8.0); NEUTROPHILS # 3.4 10^3/uL (1.5-8.5); NEUTROPHILS % 70.6 % (36.0-66.0); PLATELET COUNT, AUTOMATED 416 10^3/uL (150-450); RED BLOOD COUNT 3.43 10^6/uL (4.30-6.10); WHITE BLOOD COUNT 4.8 10^3/uL (4.0-10.0)
== END ==
LOC: M LAB REF 14:33
PROVIDERS: ATTEND Specialist
DX: D46.9 Myelodysplastic syndrome, unspecified (principal)

== ENCOUNTER → 2024-03-17 | Outpatient (REF) | payer MEDICARE ==
[~2024-03-17] MED LIST changes: +JARD1TAB
[2024-03-17 14:37] LABS: BASO # 0.1 10^3/uL (0.0-0.2); BASO % 1.1 % (0.0-1.0); EOS # 0.7 10^3/uL (0.0-0.5); EOS % 11.2 % (0.0-3.0); HEMATOCRIT 41.2 % (42.0-52.0); HEMOGLOBIN 13.2 g/dl (13.5-17.5); LYMPH # 1.4 10^3/uL (1.5-5.0); LYMPH % 21.4 % (24.0-44.0); MEAN CORPUSCULAR HEMOGLOBIN 33.7 pg (27.0-33.0); MEAN CORPUSCULAR VOLUME 105.1 fl (80.0-96.0); MONO # 0.3 10^3/uL (0.0-0.8); MONO % 5.1 % (2.0-8.0); NEUTROPHILS % 60.9 % (36.0-66.0); PLATELET COUNT, AUTOMATED 252 10^3/uL (150-450); RED BLOOD COUNT 3.92 10^6/uL (4.30-6.10); WHITE BLOOD COUNT 6.5 10^3/uL (4.0-10.0)
[2024-03-17 15:09] LABS: ALBUMIN 3.3 G/DL (3.2-5.2); ALKALINE PHOSPHATASE 72 U/L (46-116); ALT/SGPT 14 U/L (7.0-40); AST/SGOT < 8 U/L (<34); BILIRUBIN,TOTAL 0.3 MG/DL (0.3-1.2); BLOOD UREA NITROGEN 24 MG/DL (9-23); CALCIUM LEVEL 9.1 MG/DL (8.3-10.6); CARBON DIOXIDE LEVEL 28 MMOL/L (20-31); CHLORIDE LEVEL 107 MMOL/L (98-107); CREATININE FOR GFR 1.13 MG/DL (0.70-1.30); GLOMERULAR FILTRATION RATE > 60.0 (>35); GLUCOSE, FASTING 129 MG/DL (74-106); POTASSIUM SERUM 4.9 MMOL/L (3.5-5.1); SODIUM LEVEL 140 MMOL/L (136-145); TOTAL PROTEIN 6.4 G/DL (5.7-8.2)
== END ==
LOC: M SHH 14:12
PROVIDERS: ATTEND Specialist
DX: D46.9 Myelodysplastic syndrome, unspecified (principal)

== ENCOUNTER → 2024-03-31 | Outpatient (REF) | payer MEDICARE ==
[2024-03-31 13:43] LABS: BASO % 0.7 % (0.0-1.0); EOS # 0.7 10^3/uL (0.0-0.5); EOS % 11.6 % (0.0-3.0); HEMATOCRIT 41.3 % (42.0-52.0); HEMOGLOBIN 13.4 g/dl (13.5-17.5); LYMPH # 0.9 10^3/uL (1.5-5.0); LYMPH % 16.1 % (24.0-44.0); MEAN CORPUSCULAR HEMOGLOBIN 34.1 pg (27.0-33.0); MEAN CORPUSCULAR HGB CONC 32.4 g/dl (32.0-36.5); MEAN CORPUSCULAR VOLUME 105.1 fl (80.0-96.0); MONO # 0.2 10^3/uL (0.0-0.8); MONO % 3.9 % (2.0-8.0); NEUTROPHILS # 3.8 10^3/uL (1.5-8.5); NEUTROPHILS % 67.3 % (36.0-66.0); PLATELET COUNT, AUTOMATED 253 10^3/uL (150-450); RED BLOOD COUNT 3.93 10^6/uL (4.30-6.10); WHITE BLOOD COUNT 5.7 10^3/uL (4.0-10.0)
[2024-03-31 14:09] LABS: ALBUMIN 3.5 G/DL (3.2-5.2); ALKALINE PHOSPHATASE 67 U/L (46-116); ALT/SGPT 14 U/L (7.0-40); AST/SGOT 9 U/L (<34); BILIRUBIN,TOTAL 0.3 MG/DL (0.3-1.2); BLOOD UREA NITROGEN 21 MG/DL (9-23); CALCIUM LEVEL 8.9 MG/DL (8.3-10.6); CARBON DIOXIDE LEVEL 27 MMOL/L (20-31); CHLORIDE LEVEL 107 MMOL/L (98-107); GLOMERULAR FILTRATION RATE > 60.0 (>35); GLUCOSE, FASTING 126 MG/DL (74-106); POTASSIUM SERUM 4.6 MMOL/L (3.5-5.1); SODIUM LEVEL 141 MMOL/L (136-145); TOTAL PROTEIN 6.4 G/DL (5.7-8.2)
== END ==
LOC: M SHH 12:42
PROVIDERS: ATTEND Specialist
DX: D64.9 Anemia, unspecified (principal)

== ENCOUNTER → 2024-04-06 | Outpatient (CLI) | payer MEDICARE | LOC: M SOG 09:52 | PROVIDERS: ATTEND Physician Assistant | DX: S72.142D Displaced intertrochanteric fracture of left femur, subsequent encounter for closed fracture with routine healing (principal) ==

== ENCOUNTER → 2024-04-14 | Outpatient (REF) | payer MEDICARE ==
[2024-04-14 12:19] LABS: BASO % 0.5 % (0.0-1.0); EOS # 0.3 10^3/uL (0.0-0.5); EOS % 5.7 % (0.0-3.0); HEMATOCRIT 42.9 % (42.0-52.0); HEMOGLOBIN 13.6 g/dl (13.5-17.5); LYMPH # 0.9 10^3/uL (1.5-5.0); LYMPH % 16.4 % (24.0-44.0); MEAN CORPUSCULAR HEMOGLOBIN 33.1 pg (27.0-33.0); MEAN CORPUSCULAR HGB CONC 31.7 g/dl (32.0-36.5); MEAN CORPUSCULAR VOLUME 104.4 fl (80.0-96.0); MONO # 0.4 10^3/uL (0.0-0.8); MONO % 6.4 % (2.0-8.0); NEUTROPHILS % 70.6 % (36.0-66.0); PLATELET COUNT, AUTOMATED 237 10^3/uL (150-450); RED BLOOD COUNT 4.11 10^6/uL (4.30-6.10); WHITE BLOOD COUNT 5.6 10^3/uL (4.0-10.0)
[2024-04-14 12:53] LABS: ALBUMIN 3.3 G/DL (3.2-5.2); ALKALINE PHOSPHATASE 69 U/L (46-116); ALT/SGPT 21 U/L (7.0-40); AST/SGOT 12 U/L (<34); BILIRUBIN,TOTAL 0.2 MG/DL (0.3-1.2); BLOOD UREA NITROGEN 28 MG/DL (9-23); CALCIUM LEVEL 9.1 MG/DL (8.3-10.6); CARBON DIOXIDE LEVEL 28 MMOL/L (20-31); CHLORIDE LEVEL 106 MMOL/L (98-107); CREATININE FOR GFR 1.16 MG/DL (0.70-1.30); GLOMERULAR FILTRATION RATE > 60.0 (>35); GLUCOSE, FASTING 112 MG/DL (74-106); POTASSIUM SERUM 5.1 MMOL/L (3.5-5.1); SODIUM LEVEL 140 MMOL/L (136-145); TOTAL PROTEIN 6.4 G/DL (5.7-8.2)
== END ==
LOC: M LAB REF 11:58
PROVIDERS: ATTEND Specialist
DX: D46.9 Myelodysplastic syndrome, unspecified (principal)

== ENCOUNTER → 2024-04-20 | Outpatient (CLI) | payer MEDICARE | LOC: M SOG 09:37 | PROVIDERS: ATTEND Physician Assistant | DX: M25.552 Pain in left hip (principal) ==

== ENCOUNTER → 2024-05-19 | Outpatient (REF) | payer MEDICARE ==
[~2024-05-19] MED LIST changes: +ZOLO50TA PO
[2024-05-19 13:23] LABS: BASO % 0.7 % (0.0-1.0); EOS # 0.1 10^3/uL (0.0-0.5); EOS % 2.1 % (0.0-3.0); HEMATOCRIT 46.9 % (42.0-52.0); HEMOGLOBIN 15.1 g/dl (13.5-17.5); LYMPH # 0.8 10^3/uL (1.5-5.0); LYMPH % 18.5 % (24.0-44.0); MEAN CORPUSCULAR HEMOGLOBIN 32.1 pg (27.0-33.0); MEAN CORPUSCULAR HGB CONC 32.2 g/dl (32.0-36.5); MEAN CORPUSCULAR VOLUME 99.8 fl (80.0-96.0); MONO # 0.2 10^3/uL (0.0-0.8); NEUTROPHILS # 3.2 10^3/uL (1.5-8.5); PLATELET COUNT, AUTOMATED 179 10^3/uL (150-450); WHITE BLOOD COUNT 4.3 10^3/uL (4.0-10.0)
== END ==
LOC: M SHH 13:07
PROVIDERS: ATTEND Specialist
DX: D46.9 Myelodysplastic syndrome, unspecified (principal)

== ENCOUNTER → 2024-06-06 | Outpatient (CLI) | payer MEDICARE ==
[~2024-06-06] MED LIST changes: +GABA-1490 PO; -GABA600T4 PO
== END ==
LOC: M WUC 15:39
PROVIDERS: ATTEND Nurse Practitioner Family
DX: R06.02 Shortness of breath (principal)